=== PATIENT | female | born 1945 | race Caucasian/White ===

== ENCOUNTER → 2018-06-04 15:11 | Outpatient (CLI) | payer MEDICARE, OTHER, SELFPAY | PROVIDERS: PCP Internal Medicine; Visit Provider Physician Assistant | DX: N30.90 Cystitis, unspecified without hematuria (principal) | CPT/HCPCS: 87077; 87086; 87186 ==

== ENCOUNTER → 2018-10-21 10:05 | Outpatient (CLI) | payer MEDICARE, OTHER, SELFPAY ==
[2018-10-21 10:42] LABS: Add Manual Diff / Slide Review NO; Basophils Absolute Auto 0 /uL (0-100); Basophils Percent Auto 0.7 % (0-2); Eosinophils Absolute Auto 100 /uL (0-450); Eosinophils Percent Auto 1.5 % (2-4); Hematocrit 41.4 % (36-46); Hemoglobin 14.1 g/dL (12.0-16.0); Lymphocytes Absolute Auto 1100 /uL (1100-4500); Lymphocytes Percent Auto 29.6 % (25-40); Mean Corpuscular HGB Conc 33.9 % (30-36); Mean Corpuscular Hemoglobin 33.9 PG (26-34); Monocytes Absolute Auto 600 /uL (0-900); Monocytes Percent Auto 15.5 % (3-14); Neutrophils Absolute Auto 1900 /uL (1500-7000); Neutrophils Percent Auto 52.7 % (50-75); Platelet Count 238 X10^3/uL (150-400); Red Blood Cell Count 4.14 X10^6/uL (4.0-5.2); Red Cell Distribution Width 11.6 % (11.6-14.8); White Blood Cell Count 3.6 X10^3/uL (4.5-11.0)
[2018-10-21 10:58] LABS: Alanine Aminotransferase 30 IU/L (9-52); Albumin 4.7 g/dL (3.5-5.0); Albumin Globulin Ratio 1.6 (1.0-2.8); Alkaline Phosphatase 62 U/L (38-126); Aspartate Aminotransferase 35 IU/L (14-36); BUN Creatinine Ratio 38.8 (6-22); Bilirubin Total 0.7 mg/dL (0.2-1.3); Blood Urea Nitrogen 31 mg/dL (7-17); Calcium 9.6 mg/dL (8.4-10.2); Carbon Dioxide 29 mmol/L (22-32); Chloride 101 mmol/L (98-107); Cholesterol 230 mg/dL (140-199); Estimated Glomerular Filt Rate > 60.0 mL/min (>60); Glucose 104 mg/dL (80-110); HDL Cholesterol 74 mg/dL (40-60); HEMOLYSIS < 15 (0-50); LDL Cholesterol Calculated 137 mg/dL (<100); Potassium 4.9 mmol/L (3.4-5.1); Sodium 139 mmol/L (137-145); Total Protein 7.7 g/dL (6.3-8.2); Triglycerides 93 mg/dL (35-150)
[2018-10-21 11:28] LABS: Thyroid Stimulating Hormone 2.85 uIU/mL (0.47-4.68)
== END ==
PROVIDERS: PCP Internal Medicine; Visit Provider Internal Medicine Cardiovascular Disease
DX: I10 Essential (primary) hypertension (principal); E78.5 Hyperlipidemia, unspecified
CPT/HCPCS: 36415; 80053; 80061; 83735; 84443; 85025

== ENCOUNTER → 2019-01-10 19:49 | Outpatient (CLI) | payer MEDICARE, OTHER, SELFPAY | PROVIDERS: PCP Internal Medicine; Visit Provider Physician Assistant | DX: N30.01 Acute cystitis with hematuria (principal) | CPT/HCPCS: 87086 ==

== ENCOUNTER → 2019-03-06 10:30 | Outpatient (CLI) | payer MEDICARE, OTHER, SELFPAY ==
[2019-03-06 11:13] LABS: Add Manual Diff / Slide Review NO; Basophils Absolute Auto 0 /uL (0-100); Basophils Percent Auto 0.7 % (0-2); Eosinophils Absolute Auto 0 /uL (0-450); Eosinophils Percent Auto 0.8 % (2-4); Hematocrit 38.9 % (36-46); Hemoglobin 13.4 g/dL (12.0-16.0); Lymphocytes Absolute Auto 1100 /uL (1100-4500); Lymphocytes Percent Auto 29.9 % (25-40); Mean Corpuscular HGB Conc 34.4 % (30-36); Mean Corpuscular Hemoglobin 33.7 PG (26-34); Mean Corpuscular Volume 97.8 fL (80-100); Monocytes Absolute Auto 500 /uL (0-900); Monocytes Percent Auto 13.8 % (3-14); Neutrophils Absolute Auto 2000 /uL (1500-7000); Neutrophils Percent Auto 54.8 % (50-75); Platelet Count 224 X10^3/uL (150-400); Red Blood Cell Count 3.98 X10^6/uL (4.0-5.2); Red Cell Distribution Width 11.8 % (11.6-14.8); White Blood Cell Count 3.7 X10^3/uL (4.5-11.0)
[2019-03-06 12:08] LABS: Alanine Aminotransferase 35 IU/L (9-52); Albumin 4.3 g/dL (3.5-5.0); Albumin Globulin Ratio 1.6 (1.0-2.8); Alkaline Phosphatase 68 U/L (38-126); Aspartate Aminotransferase 37 IU/L (14-36); Bilirubin Total 0.9 mg/dL (0.2-1.3); Blood Urea Nitrogen 21 mg/dL (7-17); Calcium 9.4 mg/dL (8.4-10.2); Carbon Dioxide 27 mmol/L (22-32); Chloride 102 mmol/L (98-107); Cholesterol 159 mg/dL (140-199); Estimated Glomerular Filt Rate > 60.0 mL/min (>60); Globulin 2.7 g/dL (1.7-4.1); Glucose 95 mg/dL (80-110); HDL Cholesterol 82 mg/dL (40-60); HEMOLYSIS 18 (0-50); LDL Cholesterol Calculated 58 mg/dL (<100); Potassium 4.2 mmol/L (3.4-5.1); Sodium 139 mmol/L (137-145); Triglycerides 97 mg/dL (35-150)
== END ==
PROVIDERS: PCP Internal Medicine; Visit Provider Internal Medicine
DX: E78.5 Hyperlipidemia, unspecified (principal)
CPT/HCPCS: 36415; 80053; 80061; 85025

== ENCOUNTER → 2019-03-30 14:57 | Outpatient (CLI) | payer MEDICARE, OTHER, SELFPAY ==
--- NOTE | 2019-03-30 15:02 | DI.RAD.S_ITS ---
PROCEDURE: XR LUMBAR SPINE MIN 4V INDICATIONS: Status post lumbar fusion with axial low back pain TECHNIQUE: 4 views of the lumbar spine were acquired. COMPARISON: [facility], CT, CT ABDOMEN PELVIS WITH CONTRAST, 01/10/2018, 14:17. FINDINGS: Bones: 5 nonrib-bearing vertebrae are present. There is normal bony alignment maintained by L2-L4 transverse pedicle screws and vertical fixation rods with what appears to be interbody disc prosthesis material from L2-3 through L 3-4. No vertebral body compression fractures. No suspicious bony lesions. Soft tissues: Overlying bowel gas pattern is normal. No suspicious soft tissue calcifications. Oblique images: No pars defects. IMPRESSION: No trauma foun, no subluxation present. Stable appearance of the alignment along the lumbosacral spine after fusion as discussed above. No evidence of device loosening or disruption is found. Dictated by: Eusebio Snider M.D. on 03/30/2019 at 16:07 Approved by: Eusebio Snider M.D. on 03/30/2019 at 16:09
--- NOTE | 2019-03-30 15:02 | DI.CT.S_ITS ---
PROCEDURE: CT LUMBAR SPINE WO CON INDICATIONS: Axial low back pain status post L2-4 fusion TECHNIQUE: Noncontrast 3 mm thick sections acquired from the T12 level to the sacrum. Sagittal and coronal reformats were constructed. For radiation dose reduction, the following was used: automated exposure control. COMPARISON: [facility], CT, L-SPINE WITHOUT CONTRAST, 11/10/2016, 10:53. FINDINGS: Image quality: Excellent. Bones: Postsurgical changes compatible with left L2-L3 partial facetectomy and L3 laminectomy are stable compared to prior examination. Postsurgical changes compatible with L2-L4 posterior and interbody fusion are stable compared to the prior exam. Orthopedic hardware remains intact. No lucency is identified at the bone hardware interface. There is normal bony alignment. No acute vertebral body compression fractures. No suspicious lytic or blastic bony lesions. No pars defects. T12-L1: Disc height is normal. No central stenosis. No neural foraminal narrowing. No neural impingement. L1-L2: Loss of disc height. Moderate, diffuse disc bulge. Mild bilateral facet hypertrophy. Mild ligamentum flavum hypertrophy. Mild to moderate narrowing of the central canal. Mild left neural foraminal narrowing. No definite neural impingement. L2-L3: Status post fusion. No central stenosis. Mild left neural foraminal narrowing. No definite neural impingement. L3-L4: Status post fusion. No central stenosis. No neural foraminal narrowing. No definite neural impingement. L4-L5: Loss of disc height. Vacuum disc phenomenon. Mild diffuse disc bulge. Moderate facet and moderate ligamentum flavum hypertrophy. Moderate to severe narrowing of the central canal with possible compression of the nerve roots of cauda equina. Moderate right and mild left neural foraminal narrowing. L5-S1: Disc height is normal. Mild, diffuse disc bulge. Moderate bilateral facet hypertrophy. No central stenosis. Mild right neural foraminal narrowing. No neural impingement. 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 Soft tissues: No retroperitoneal masses or hematomas. Visualized aorta is normal in caliber. IMPRESSION: 1. Stable postsurgical changes. 2. Moderate to severe L4-L5 central canal stenosis. Mild to moderate L1-L2 central canal narrowing. 3. Moderate right and mild left L4-L5 neural foraminal narrowing. Mild left L1-L2 and L2-L3 neural foraminal narrowing. Mild right L5-S1 neural foraminal narrowing. 4. Possible mild compression of the nerve root of cauda equina at level of the L4-L5 disc secondary to central canal stenosis. Dictated by: Marycarmen Quinonez MD, PhD on 03/30/2019 at 17:08 Approved by: Marycarmen Quinonez MD, PhD on 03/30/2019 at 17:17
== END ==
PROVIDERS: PCP Internal Medicine; Visit Provider Physical Medicine & Rehabilitation
DX: M54.5 Low back pain (principal); M48.061 Spinal stenosis, lumbar region without neurogenic claudication; M48.07 Spinal stenosis, lumbosacral region; M47.27 Other spondylosis with radiculopathy, lumbosacral region; Z98.1 Arthrodesis status
CPT/HCPCS: 72110; 72131

== ENCOUNTER → 2019-05-09 14:34 | Outpatient (CLI) | payer MEDICARE, OTHER, SELFPAY ==
[2019-05-09 15:01] LABS: BUN Creatinine Ratio 31.1 (6-22); Blood Urea Nitrogen 28 mg/dL (7-17); Estimated Glomerular Filt Rate > 60.0 mL/min (>60)
== END ==
PROVIDERS: PCP Internal Medicine; Visit Provider Physical Medicine & Rehabilitation
DX: M47.27 Other spondylosis with radiculopathy, lumbosacral region (principal); Z01.812 Encounter for preprocedural laboratory examination
CPT/HCPCS: 36415; 82565; 84520

== ENCOUNTER → 2019-06-14 16:56 | Outpatient (CLI) | payer MEDICARE, OTHER, SELFPAY ==
--- NOTE | 2019-06-14 16:58 | DI.RAD.S_ITS ---
PROCEDURE: XR CHEST 2V INDICATIONS: SOB, productive cough, r/o pneumonia TECHNIQUE: 2 views of the chest were acquired. COMPARISON: None. FINDINGS: Surgical changes and devices: Lumbar spine fixation hardware. Lungs and pleura: Lungs are clear. No pleural effusions or pneumothorax. Mediastinum: Mediastinal contours are normal. Heart size is normal. Bones and chest wall: No suspicious bony abnormalities. Soft tissues appear unremarkable. IMPRESSION: No acute cardiopulmonary disease process. Dictated by: Marycarmen Quinonez MD, PhD on 06/14/2019 at 17:43 Approved by: Marycarmen Quinonez MD, PhD on 06/14/2019 at 17:45
== END ==
PROVIDERS: PCP Internal Medicine; Visit Provider Nurse Practitioner
DX: R05 Cough (principal); R06.02 Shortness of breath
CPT/HCPCS: 71046

== ENCOUNTER 2019-07-16 09:45 | Outpatient (RCR) | payer MEDICARE, OTHER, SELFPAY ==
--- NOTE | 2019-05-15 15:00 | PT.OPPOC ---
Current Diagnoses Scoliosis, unspecified (05/15/19) Other spondylosis with radiculopathy, lumbosacral region (05/15/19) Spondylosis without myelopathy or radiculopathy, lumbosacral region (05/15/19) Arthrodesis status (05/15/19) Visit Care Team Role Provider Type Yinka Ardon MD Primary Care Provider Non-Staff Specialty: Medical Address: [address] [place] [address], [id number] Email: YUE Kelley Attending Provider Advanced Refractory Specialist Specialty: Pain Management Address: [address] [place] [address], [id number] Email: [email or web address] Plan Of Care PT-OP-T Assessment and Plan Start: 05/15/19 09:07 Freq: Status: Active Protocol: Document 05/15/19 14:33 MB (Rec: 05/15/19 15:07 MB [id number]) Physical Therapy Assessment Rehab Potential Rehabilitation Potential Good Evaluation Complexity Number of Personal Factors/Comorbidities 1-2 Number of Body Systems Impaired 1-2 Clinical Presentation at Evaluation Stable Impairments Impairments Balance,Functional Activities, Functional Mobility,Gait,Pain, Posture,ROM,Sensation,Soft Tissue Mobility,Strength Goals Six Retirement Goal (LTG) Pt will perform B Tandem to 30 sec to reflect improved balance by 07/15/19. Five Ophthalmology Surgical Technician Goal (LTG) Pt will perform progressive HEP with I including pelvic realignment, flexibility, core and LE strengthening and balance exercises by 07/15/19. Four Impairment Weakness Retirement Goal (LTG) Pt will present with improved B great toe extension strength to 4/5 by 07/15/19. Three Impairment Weakness Ophthalmology Surgical Technician Goal (LTG) Pt will present with B hip flexion, abduction, knee flexion and extension strength to 5/5 by 07/15/19. Two Impairment Decreased Flexibility Ophthalmology Surgical Technician Goal (LTG) Pt will present with B passive straight leg raise to 85 deg to improve functional flexibility by 07/15/19. One Impairment Pain Retirement Goal (LTG) Pain will report a 65% improvement in back and LLE pain by 07/15/19. Assessment Summary Assessment Pt is a 73 y/o female presenting with chronic back and LLE pain in setting of spinal changes including scoliosis and fusions. She presents with pelvic obliquities and functional leg length changes. She feels that her right LE is shorter than the left and wears a lift in her right shoe. Pt presents with decreased LE flexibility to passive testing , decreased B LE strength and poor balance. She presents with myofascial changes as well. She will benefit from PT for pelvic realignment, manual therapy, progressive flexibility and balance exercises. Physical Therapy Plan Frequency and Duration Frequency of Treatment 2x/Week Duration of Treatment 8 weeks Plan of Care Start Date 05/15/19 Plan of Care End Date 07/16/19 Therapeutic Interventions Therapeutic Interventions Aquatic Therapy,Balance Training,Coordination Training ,Home Exercise Program,Manual Therapy,Neuromuscular Re- education,Patient/Caregiver Education,Self-Care/Home Management,Sensory Integration ,Soft Tissue Mobilization, Taping,Therapeutic Activities, Therapeutic Exercises Modalities Cold Pack/Ice Massage Next Visit Focus/Plan Next Note Type Treatment Note Plan of Care Dates Plan of Care Start Date 05/15/19 Plan of Care End Date 07/16/19
--- NOTE | 2019-05-15 15:08 | PT.OIE ---
Current Diagnoses Scoliosis, unspecified (05/15/19) Other spondylosis with radiculopathy, lumbosacral region (05/15/19) Spondylosis without myelopathy or radiculopathy, lumbosacral region (05/15/19) Arthrodesis status (05/15/19) Visit Care Team Role Provider Type Yinka Ardon MD Primary Care Provider Non-Staff Specialty: Medical Address: [address] [place] [address], [id number] Email: YUE Kelley Attending Provider Advanced Work Measurement Engineer Specialty: Pain Management Address: [address] [place] [address], [id number] Email: [email or web address] Physical Therapy Initial Evaluation PT-OP-A Visit Information Start: 05/15/19 09:07 Freq: Status: Active Protocol: Document 05/15/19 14:33 MB (Rec: 05/15/19 15:07 MB [id number]) Out-Patient Physical Therapy Visit Information Visit Information Visit Type Initial Evaluation Visit Start Time 13:45 Visit Stop Time 14:25 Total Visit Minutes 40 Visit Number / Number of NAVAL ENGINEER Visits 0 Evaluation Information Evaluation Date 05/15/19 Precautions Precautions Hx cervical and lumbar fusions , so recommend avoid twisting, extreme extension and flexion PT-OP-B Current Condition Start: 05/15/19 09:07 Freq: Status: Active Protocol: Document 05/15/19 14:33 MB (Rec: 05/15/19 15:07 MB [id number]) Current Condition History of Current Condition Onset Date Gradual Current Complaints Chronic LB pain and L lateral tingling and pain, B LE/foot neuropathy History of Current Condition Hx scoliosis, cervical fusion and L2-4 fusion. Ongoing spinal changes with curvature, severe pelvic obliquities with left iliac crest 3/4-1 inch higher than the right, anterior rotation of the left pelvis. Pt reports long history of peripheral neuropathy. 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 Prior Treatments and Tests Sx PT in the past that she did not care for in that she was given a lot of exercises and they might have exacerbated pain, PT focused on her going through her exercises during tx Future Testing and Treatments Planned Follow-up with neurologist Developmental History Developmental History See above. Hx of scoliotic changes since childhood Treatment Goals Patient/Caregiver Goals To decrease pain Prior Functional Status Baseline Function- ADL's Independent Baseline Function- Mobility Independent PT-OP-C Subjective Start: 05/15/19 09:07 Freq: Status: Active Protocol: Document 05/15/19 14:33 MB (Rec: 05/15/19 15:07 MB [id number]) OP-PT Subjective Patient Comments Patient Comments Pt reports increased back pain that moves from side to side and across her whole low back that is worse with sitting greater than 1/2 hour. When asked particular questions, she has trouble answering some such as rating pain. She reports left LE tingling and paresthesias down the lateral leg and B peripheral neuropathy. She has some bladder emptying problems, sleeps on her right side d/t left lateral leg pain with left side lying. She has trouble with balance. She feels like her left leg is longer and wheres a lift in her right shoe. Patient Reported Progress Same Patient Questionnaires Oswestry Low Back Index Oswestry Score 16/50 Oswestry Impairment 20 to 39% Impaired (Score 20- 39) OP-PT Pain Assessment Location Back Pain Location Details Pt reports whole back pain that occ changes sides. She points to LB Frequency Constant Pain Aggravating Factors Sitting Patient Stated Pain Goal Pt does not set goal. Pt reports tingling and pain left lateral leg, B feet PT-OP-D Balance Start: 05/15/19 09:07 Freq: Status: Active Protocol: Document 05/15/19 14:33 MB (Rec: 05/15/19 15:07 MB [id number]) OP-PT Balance Assessment Standing Balance Static Standing Balance Ability Good Standing Balance Comments Romberg with eyes opened and closed 30 sec. SLS right 7 sec and then LOB; SLS left 7 sec and then LOB Downing Fall Scale Copyright Permission PT-OP-G Mobility & Gait Start: 05/15/19 09:07 Freq: Status: Active Protocol: Document 05/15/19 14:33 MB (Rec: 05/15/19 15:07 MB [id number]) OP Gait Assessment Gait Gait Assistance Required: Independent Gait Deviations General Gait Pattern Within Normal Limits Comments Gait Comments Functionally, pt does appear to have functional leg length difference related to pelvic changes--elevated left iliac crest and anteriorly rotated left pelvis. PT-OP-K Range of Motion Start: 05/15/19 09:07 Freq: Status: Active Protocol: Document 05/15/19 14:33 MB (Rec: 05/15/19 15:07 MB [id number]) Lumbar Spine Range of Motion Lumbar Spine Active Comments Given fusions and scoliotic changes with right thoracic convexity and left lumbar convexity (that appears to be functionally corrected for straightened spine but left pelvis is affected, elevated and rotated), repeated flexion and extension and SB in standing deferred. Hip Goniometric Range of Motion Hip ROM Limitations Comments SLS right 80 deg; left 70 deg PT-OP-L Special Tests Start: 05/15/19 09:07 Freq: Status: Active Protocol: Document 05/15/19 14:33 MB (Rec: 05/15/19 15:07 MB [id number]) Special Tests Lumbar Spine Special Tests Slump Test Results Negative for tingling and pt reports B increased stretch posterior legs >L PT-OP-M Strength Start: 05/15/19 09:07 Freq: Status: Active Protocol: Document 05/15/19 14:33 MB (Rec: 05/15/19 15:07 MB [id number]) Hip Strength Hip Manual Muscle Testing Left Flexion (L2) 4 Good Abduction 3+ Fair+ Comments Supine Right Flexion (L2) 4 Good Abduction 3+ Fair+ Comments Supine Knee Strength Knee Manual Muscle Testing Left Flexion (S2) 4 Good Extension (L3) 5 Normal Comments Supine Right Flexion (S2) 4 Good Extension (L3) 5 Normal Comments Supine Ankle/Foot Strength Ankle and Foot Manual Muscle Testing Left Dorsiflexion (L4) 5 Normal Plantarflexion (S1) 4 Good Right Dorsiflexion (L4) 5 Normal Plantarflexion (S1) 4 Good Toe Strength Toe Manual Muscle Testing Great Toe Comments B great toe extension 3+/5 PT-OP-T Assessment and Plan Start: 05/15/19 09:07 Freq: Status: Active Protocol: Document 05/15/19 14:33 MB (Rec: 05/15/19 15:07 MB [id number]) Physical Therapy Assessment Rehab Potential Rehabilitation Potential Good Evaluation Complexity Number of Personal Factors/Comorbidities 1-2 Number of Body Systems Impaired 1-2 Clinical Presentation at Evaluation Stable Impairments Impairments Balance,Functional Activities, Functional Mobility,Gait,Pain, Posture,ROM,Sensation,Soft Tissue Mobility,Strength Goals Six Penitentiary Goal (LTG) Pt will perform B Tandem to 30 sec to reflect improved balance by 07/15/19. Five Director Of Psychiatry Goal (LTG) Pt will perform progressive HEP with I including pelvic realignment, flexibility, core and LE strengthening and balance exercises by 07/15/19. Four Impairment Weakness Director Of Psychiatry Goal (LTG) Pt will present with improved B great toe extension strength to 4/5 by 07/15/19. Three Impairment Weakness Penitentiary Goal (LTG) Pt will present with B hip flexion, abduction, knee flexion and extension strength to 5/5 by 07/15/19. Two Impairment Decreased Flexibility Director Of Psychiatry Goal (LTG) Pt will present with B passive straight leg raise to 85 deg to improve functional flexibility by 07/15/19. One Impairment Pain Director Of Psychiatry Goal (LTG) Pain will report a 65% improvement in back and LLE pain by 07/15/19. Assessment Summary Assessment Pt is a 73 y/o female presenting with chronic back and LLE pain in setting of spinal changes including scoliosis and fusions. She presents with pelvic obliquities and functional leg length changes. She feels that her right LE is shorter than the left and wears a lift in her right shoe. Pt presents with decreased LE flexibility to passive testing , decreased B LE strength and poor balance. She presents with myofascial changes as well. She will benefit from PT for pelvic realignment, manual therapy, progressive flexibility and balance exercises. Physical Therapy Plan Frequency and Duration Frequency of Treatment 2x/Week Duration of Treatment 8 weeks Plan of Care Start Date 05/15/19 Plan of Care End Date 07/16/19 Therapeutic Interventions Therapeutic Interventions Aquatic Therapy,Balance Training,Coordination Training ,Home Exercise Program,Manual Therapy,Neuromuscular Re- education,Patient/Caregiver Education,Self-Care/Home Management,Sensory Integration ,Soft Tissue Mobilization, Taping,Therapeutic Activities, Therapeutic Exercises Modalities Cold Pack/Ice Massage Next Visit Focus/Plan Next Note Type Treatment Note
--- NOTE | 2019-05-28 10:35 | PT.OTN ---
Current Diagnoses Scoliosis, unspecified (05/28/19) Other spondylosis with radiculopathy, lumbosacral region (05/28/19) Spondylosis without myelopathy or radiculopathy, lumbosacral region (05/28/19) Arthrodesis status (05/28/19) Physical Therapy Treatment Note PT-OP-A Visit Information Start: 05/15/19 09:07 Freq: Status: Active Protocol: Document 05/28/19 09:45 MB (Rec: 05/28/19 10:30 MB [id number]) Out-Patient Physical Therapy Visit Information Visit Information Visit Type Treatment Note Visit Note Initiated pelvic realignment exercises, hamstring, calf and AP stretch, Jaden stretch Visit Start Time 09:45 Visit Stop Time 10:30 Total Visit Minutes 45 Visit Number 2/ Number of SAFETY RISK LEAD Visits 0 PT-OP-B Current Condition Start: 05/15/19 09:07 Freq: Status: Active Protocol: Document 05/15/19 14:33 MB (Rec: 05/15/19 15:07 MB [id number]) Current Condition History of Current Condition Onset Date Gradual Current Complaints Chronic LB pain and L lateral tingling and pain, B LE/foot neuropathy History of Current Condition Hx scoliosis, cervical fusion and L2-4 fusion. Ongoing spinal changes with curvature, severe pelvic obliquities with left iliac crest 3/4-1 inch higher than the right, anterior rotation of the left pelvis. Pt reports long history of peripheral neuropathy. 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 Prior Treatments and Tests Sx PT in the past that she did not care for in that she was given a lot of exercises and they might have exacerbated pain, PT focused on her going through her exercises during tx Future Testing and Treatments Planned Follow-up with neurologist Developmental History Developmental History See above. Hx of scoliotic changes since childhood Treatment Goals Patient/Caregiver Goals To decrease pain Prior Functional Status Baseline Function- ADL's Independent Baseline Function- Mobility Independent PT-OP-C Subjective Start: 05/15/19 09:07 Freq: Status: Active Protocol: Document 05/28/19 09:45 MB (Rec: 05/28/19 10:30 MB [id number]) OP-PT Subjective Patient Comments Patient Comments Pt reports that she thinks she tweeked her neck. She is done RVing for the season. PT-OP-D Balance Start: 05/15/19 09:07 Freq: Status: Active Protocol: Document 05/15/19 14:33 MB (Rec: 05/15/19 15:07 MB [id number]) OP-PT Balance Assessment Standing Balance Static Standing Balance Ability Good Standing Balance Comments Romberg with eyes opened and closed 30 sec. SLS right 7 sec and then LOB; SLS left 7 sec and then LOB Downing Fall Scale Copyright Permission PT-OP-G Mobility & Gait Start: 05/15/19 09:07 Freq: Status: Active Protocol: Document 05/15/19 14:33 MB (Rec: 05/15/19 15:07 MB [id number]) OP Gait Assessment Gait Gait Assistance Required: Independent Gait Deviations General Gait Pattern Within Normal Limits Comments Gait Comments Functionally, pt does appear to have functional leg length difference related to pelvic changes--elevated left iliac crest and anteriorly rotated left pelvis. PT-OP-K Range of Motion Start: 05/15/19 09:07 Freq: Status: Active Protocol: Document 05/15/19 14:33 MB (Rec: 05/15/19 15:07 MB [id number]) Lumbar Spine Range of Motion Lumbar Spine Active Comments Given fusions and scoliotic changes with right thoracic convexity and left lumbar convexity (that appears to be functionally corrected for straightened spine but left pelvis is affected, elevated and rotated), repeated flexion and extension and SB in standing deferred. Hip Goniometric Range of Motion Hip ROM Limitations Comments SLS right 80 deg; left 70 deg PT-OP-L Special Tests Start: 05/15/19 09:07 Freq: Status: Active Protocol: Document 05/15/19 14:33 MB (Rec: 05/15/19 15:07 MB [id number]) Special Tests Lumbar Spine Special Tests Slump Test Results Negative for tingling and pt reports B increased stretch posterior legs >L PT-OP-M Strength Start: 05/15/19 09:07 Freq: Status: Active Protocol: Document 05/15/19 14:33 MB (Rec: 05/15/19 15:07 MB [id number]) Hip Strength Hip Manual Muscle Testing Left Flexion (L2) 4 Good Abduction 3+ Fair+ Comments Supine Right Flexion (L2) 4 Good Abduction 3+ Fair+ Comments Supine Knee Strength Knee Manual Muscle Testing Left Flexion (S2) 4 Good Extension (L3) 5 Normal Comments Supine Right Flexion (S2) 4 Good Extension (L3) 5 Normal Comments Supine Ankle/Foot Strength Ankle and Foot Manual Muscle Testing Left Dorsiflexion (L4) 5 Normal Plantarflexion (S1) 4 Good Right Dorsiflexion (L4) 5 Normal Plantarflexion (S1) 4 Good Toe Strength Toe Manual Muscle Testing Great Toe Comments B great toe extension 3+/5 PT-OP-Q Treatments Start: 05/15/19 09:07 Freq: Status: Active Protocol: Document 05/28/19 09:45 MB (Rec: 05/28/19 10:30 MB [id number]) Therapeutic Exercises Supine Exercises Pelvic realignment exercises Comments Pelvic realignment exercises Hamstring, calf and AP stretch Comments Hamstring, calf and AP stretch , add/abd Jaden stretch Comments Jaden stretch PT-OP-T Assessment and Plan Start: 05/15/19 09:07 Freq: Status: Active Protocol: Document 05/28/19 09:45 MB (Rec: 05/28/19 10:30 MB [id number]) Physical Therapy Assessment Goals Six Longterm Goal (LTG) Pt will perform B Tandem to 30 sec to reflect improved balance by 07/15/19. Five Longterm Goal (LTG) Pt will perform progressive HEP with I including pelvic realignment, flexibility, core and LE strengthening and balance exercises by 07/15/19. Four Impairment Weakness Ship Engineer Goal (LTG) Pt will present with improved B great toe extension strength to 4/5 by 07/15/19. Three Impairment Weakness Longterm Goal (LTG) Pt will present with B hip flexion, abduction, knee flexion and extension strength to 5/5 by 07/15/19. Two Impairment Decreased Flexibility Ship Engineer Goal (LTG) Pt will present with B passive straight leg raise to 85 deg to improve functional flexibility by 07/15/19. One Impairment Pain Ship Engineer Goal (LTG) Pain will report a 65% improvement in back and LLE pain by 07/15/19. Physical Therapy Plan Frequency and Duration Frequency of Treatment 2x/Week Duration of Treatment 8 weeks Plan of Care Start Date 05/15/19 Plan of Care End Date 07/16/19 Next Visit Focus/Plan Next Note Type Treatment Note Next Visit Plan Review pelvic realignement exercises, consider hip flexor work, QL. Consider pelvic pain exercises.
--- NOTE | 2019-05-30 10:32 | PT.OTN ---
Current Diagnoses Scoliosis, unspecified (05/30/19) Other spondylosis with radiculopathy, lumbosacral region (05/30/19) Spondylosis without myelopathy or radiculopathy, lumbosacral region (05/30/19) Arthrodesis status (05/30/19) Physical Therapy Treatment Note PT-OP-A Visit Information Start: 05/15/19 09:07 Freq: Status: Active Protocol: Document 05/30/19 09:48 MB (Rec: 05/30/19 10:32 MB [id number]) Out-Patient Physical Therapy Visit Information Visit Information Visit Type Treatment Note Visit Start Time 09:48 Visit Stop Time 10:30 Total Visit Minutes 43 Visit Number 3/ Number of V BELT COVERER Visits 0 PT-OP-B Current Condition Start: 05/15/19 09:07 Freq: Status: Active Protocol: Document 05/15/19 14:33 MB (Rec: 05/15/19 15:07 MB [id number]) Current Condition History of Current Condition Onset Date Gradual Current Complaints Chronic LB pain and L lateral tingling and pain, B LE/foot neuropathy History of Current Condition Hx scoliosis, cervical fusion and L2-4 fusion. Ongoing spinal changes with curvature, severe pelvic obliquities with left iliac crest 3/4-1 inch higher than the right, anterior rotation of the left pelvis. Pt reports long history of peripheral neuropathy. 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 Prior Treatments and Tests Sx PT in the past that she did not care for in that she was given a lot of exercises and they might have exacerbated pain, PT focused on her going through her exercises during tx Future Testing and Treatments Planned Follow-up with neurologist Developmental History Developmental History See above. Hx of scoliotic changes since childhood Treatment Goals Patient/Caregiver Goals To decrease pain Prior Functional Status Baseline Function- ADL's Independent Baseline Function- Mobility Independent PT-OP-C Subjective Start: 05/15/19 09:07 Freq: Status: Active Protocol: Document 05/30/19 09:48 MB (Rec: 05/30/19 10:32 MB [id number]) OP-PT Subjective Patient Comments Patient Comments Pt has been doing stretches and made her own stretching belt. She has right upper traps tension. PT-OP-D Balance Start: 05/15/19 09:07 Freq: Status: Active Protocol: Document 05/15/19 14:33 MB (Rec: 05/15/19 15:07 MB [id number]) OP-PT Balance Assessment Standing Balance Static Standing Balance Ability Good Standing Balance Comments Romberg with eyes opened and closed 30 sec. SLS right 7 sec and then LOB; SLS left 7 sec and then LOB Downing Fall Scale Copyright Permission PT-OP-G Mobility & Gait Start: 05/15/19 09:07 Freq: Status: Active Protocol: Document 05/15/19 14:33 MB (Rec: 05/15/19 15:07 MB [id number]) OP Gait Assessment Gait Gait Assistance Required: Independent Gait Deviations General Gait Pattern Within Normal Limits Comments Gait Comments Functionally, pt does appear to have functional leg length difference related to pelvic changes--elevated left iliac crest and anteriorly rotated left pelvis. PT-OP-K Range of Motion Start: 05/15/19 09:07 Freq: Status: Active Protocol: Document 05/15/19 14:33 MB (Rec: 05/15/19 15:07 MB [id number]) Lumbar Spine Range of Motion Lumbar Spine Active Comments Given fusions and scoliotic changes with right thoracic convexity and left lumbar convexity (that appears to be functionally corrected for straightened spine but left pelvis is affected, elevated and rotated), repeated flexion and extension and SB in standing deferred. Hip Goniometric Range of Motion Hip ROM Limitations Comments SLS right 80 deg; left 70 deg PT-OP-L Special Tests Start: 05/15/19 09:07 Freq: Status: Active Protocol: Document 05/15/19 14:33 MB (Rec: 05/15/19 15:07 MB [id number]) Special Tests Lumbar Spine Special Tests Slump Test Results Negative for tingling and pt reports B increased stretch posterior legs >L PT-OP-M Strength Start: 05/15/19 09:07 Freq: Status: Active Protocol: Document 05/15/19 14:33 MB (Rec: 05/15/19 15:07 MB [id number]) Hip Strength Hip Manual Muscle Testing Left Flexion (L2) 4 Good Abduction 3+ Fair+ Comments Supine Right Flexion (L2) 4 Good Abduction 3+ Fair+ Comments Supine Knee Strength Knee Manual Muscle Testing Left Flexion (S2) 4 Good Extension (L3) 5 Normal Comments Supine Right Flexion (S2) 4 Good Extension (L3) 5 Normal Comments Supine Ankle/Foot Strength Ankle and Foot Manual Muscle Testing Left Dorsiflexion (L4) 5 Normal Plantarflexion (S1) 4 Good Right Dorsiflexion (L4) 5 Normal Plantarflexion (S1) 4 Good Toe Strength Toe Manual Muscle Testing Great Toe Comments B great toe extension 3+/5 PT-OP-Q Treatments Start: 05/15/19 09:07 Freq: Status: Active Protocol: Document 05/30/19 09:48 MB (Rec: 05/30/19 10:32 MB [id number]) Therapeutic Exercises Supine Exercises Pelvic and back pain sequence Supine Exercise Name Abdominal drawing in, drop, thigh press, bug pressing inside thighs Comments Hip rotator stretch, buttocks stretch, adductor, standing hip flexor, QL PT-OP-T Assessment and Plan Start: 05/15/19 09:07 Freq: Status: Active Protocol: Document 05/30/19 09:48 MB (Rec: 05/30/19 10:32 MB [id number]) Physical Therapy Assessment Goals Six Balancing Machine Operator Goal (LTG) Pt will perform B Tandem to 30 sec to reflect improved balance by 07/15/19. Five Balancing Machine Operator Goal (LTG) Pt will perform progressive HEP with I including pelvic realignment, flexibility, core and LE strengthening and balance exercises by 07/15/19. Four Impairment Weakness Snf Goal (LTG) Pt will present with improved B great toe extension strength to 4/5 by 07/15/19. Three Impairment Weakness Snf Goal (LTG) Pt will present with B hip flexion, abduction, knee flexion and extension strength to 5/5 by 07/15/19. Two Impairment Decreased Flexibility Balancing Machine Operator Goal (LTG) Pt will present with B passive straight leg raise to 85 deg to improve functional flexibility by 07/15/19. One Impairment Pain Balancing Machine Operator Goal (LTG) Pain will report a 65% improvement in back and LLE pain by 07/15/19. Assessment Summary Assessment Initiated pelvic and lumbar pain program this date and pt responds well. Consider teaching use of racquet ball for massage. Physical Therapy Plan Frequency and Duration Frequency of Treatment 2x/Week Duration of Treatment 8 weeks Plan of Care Start Date 05/15/19 Plan of Care End Date 07/16/19 Therapeutic Interventions Therapeutic Interventions Aquatic Therapy,Balance Training,Coordination Training ,Home Exercise Program,Manual Therapy,Neuromuscular Re- education,Patient/Caregiver Education,Self-Care/Home Management,Sensory Integration ,Soft Tissue Mobilization, Taping,Therapeutic Activities, Therapeutic Exercises Modalities Cold Pack/Ice Massage Next Visit Focus/Plan Next Note Type Treatment Note Next Visit Plan Consider consider hip flexor work, QL. Progress hip abductior and extensor strengthening, abdominal drawing in progression.
--- NOTE | 2019-06-04 11:18 | PT.OTN ---
Current Diagnoses Scoliosis, unspecified (06/04/19) Other spondylosis with radiculopathy, lumbosacral region (06/04/19) Spondylosis without myelopathy or radiculopathy, lumbosacral region (06/04/19) Arthrodesis status (06/04/19) Physical Therapy Treatment Note PT-OP-A Visit Information Start: 05/15/19 09:07 Freq: Status: Active Protocol: Document 06/04/19 09:47 MB (Rec: 06/04/19 10:27 MB [id number]) Out-Patient Physical Therapy Visit Information Visit Information Visit Type Treatment Note Visit Start Time 09:47 Visit Stop Time 10:30 Total Visit Minutes 43 Visit Number 11/22 Number of RELAY SHOP TESTER Visits 0 PT-OP-B Current Condition Start: 05/15/19 09:07 Freq: Status: Active Protocol: Document 05/15/19 14:33 MB (Rec: 05/15/19 15:07 MB [id number]) Current Condition History of Current Condition Onset Date Gradual Current Complaints Chronic LB pain and L lateral tingling and pain, B LE/foot neuropathy History of Current Condition Hx scoliosis, cervical fusion and L2-4 fusion. Ongoing spinal changes with curvature, severe pelvic obliquities with left iliac crest 3/4-1 inch higher than the right, anterior rotation of the left pelvis. Pt reports long history of peripheral neuropathy. 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 Prior Treatments and Tests Sx PT in the past that she did not care for in that she was given a lot of exercises and they might have exacerbated pain, PT focused on her going through her exercises during tx Future Testing and Treatments Planned Follow-up with neurologist Developmental History Developmental History See above. Hx of scoliotic changes since childhood Treatment Goals Patient/Caregiver Goals To decrease pain Prior Functional Status Baseline Function- ADL's Independent Baseline Function- Mobility Independent PT-OP-C Subjective Start: 05/15/19 09:07 Freq: Status: Active Protocol: Document 06/04/19 09:47 MB (Rec: 06/04/19 10:27 MB [id number]) OP-PT Subjective Patient Comments Patient Comments Pt states that her upper back pain is problematic. She feels it is spasming that goes all the way up to her neck. PT-OP-D Balance Start: 05/15/19 09:07 Freq: Status: Active Protocol: Document 05/15/19 14:33 MB (Rec: 05/15/19 15:07 MB [id number]) OP-PT Balance Assessment Standing Balance Static Standing Balance Ability Good Standing Balance Comments Romberg with eyes opened and closed 30 sec. SLS right 7 sec and then LOB; SLS left 7 sec and then LOB Downing Fall Scale Copyright Permission PT-OP-G Mobility & Gait Start: 05/15/19 09:07 Freq: Status: Active Protocol: Document 05/15/19 14:33 MB (Rec: 05/15/19 15:07 MB [id number]) OP Gait Assessment Gait Gait Assistance Required: Independent Gait Deviations General Gait Pattern Within Normal Limits Comments Gait Comments Functionally, pt does appear to have functional leg length difference related to pelvic changes--elevated left iliac crest and anteriorly rotated left pelvis. PT-OP-K Range of Motion Start: 05/15/19 09:07 Freq: Status: Active Protocol: Document 05/15/19 14:33 MB (Rec: 05/15/19 15:07 MB [id number]) Lumbar Spine Range of Motion Lumbar Spine Active Comments Given fusions and scoliotic changes with right thoracic convexity and left lumbar convexity (that appears to be functionally corrected for straightened spine but left pelvis is affected, elevated and rotated), repeated flexion and extension and SB in standing deferred. Hip Goniometric Range of Motion Hip ROM Limitations Comments SLS right 80 deg; left 70 deg PT-OP-L Special Tests Start: 05/15/19 09:07 Freq: Status: Active Protocol: Document 05/15/19 14:33 MB (Rec: 05/15/19 15:07 MB [id number]) Special Tests Lumbar Spine Special Tests Slump Test Results Negative for tingling and pt reports B increased stretch posterior legs >L PT-OP-M Strength Start: 05/15/19 09:07 Freq: Status: Active Protocol: Document 05/15/19 14:33 MB (Rec: 05/15/19 15:07 MB [id number]) Hip Strength Hip Manual Muscle Testing Left Flexion (L2) 4 Good Abduction 3+ Fair+ Comments Supine Right Flexion (L2) 4 Good Abduction 3+ Fair+ Comments Supine Knee Strength Knee Manual Muscle Testing Left Flexion (S2) 4 Good Extension (L3) 5 Normal Comments Supine Right Flexion (S2) 4 Good Extension (L3) 5 Normal Comments Supine Ankle/Foot Strength Ankle and Foot Manual Muscle Testing Left Dorsiflexion (L4) 5 Normal Plantarflexion (S1) 4 Good Right Dorsiflexion (L4) 5 Normal Plantarflexion (S1) 4 Good Toe Strength Toe Manual Muscle Testing Great Toe Comments B great toe extension 3+/5 PT-OP-Q Treatments Start: 05/15/19 09:07 Freq: Status: Active Protocol: Document 06/04/19 09:47 MB (Rec: 06/04/19 10:27 MB [id number]) Therapeutic Exercises Sidelying Exercises Sidelying QL stretch Comments Sidelying QL stretch Standing Exercises Racquet ball massage Comments Intrascapular, glute massage Manual Therapy Treatment Soft Tissue Mobilization QL side lying rib recoil Comments Side lying rib recoil for QL, STM as well, B PT-OP-T Assessment and Plan Start: 05/15/19 09:07 Freq: Status: Active Protocol: Document 06/04/19 09:47 MB (Rec: 06/04/19 10:27 MB [id number]) Physical Therapy Assessment Rehab Potential Rehabilitation Potential Good Evaluation Complexity Number of Personal Factors/Comorbidities 1-2 Number of Body Systems Impaired 1-2 Clinical Presentation at Evaluation Stable Impairments Impairments Balance,Functional Activities, Functional Mobility,Gait,Pain, Posture,ROM,Sensation,Soft Tissue Mobility,Strength Goals Six Prescriptionist Goal (LTG) Pt will perform B Tandem to 30 sec to reflect improved balance by 07/15/19. Five Prescriptionist Goal (LTG) Pt will perform progressive HEP with I including pelvic realignment, flexibility, core and LE strengthening and balance exercises by 07/15/19. Four Impairment Weakness Prescriptionist Goal (LTG) Pt will present with improved B great toe extension strength to 4/5 by 07/15/19. Three Impairment Weakness Detention Goal (LTG) Pt will present with B hip flexion, abduction, knee flexion and extension strength to 5/5 by 07/15/19. Two Impairment Decreased Flexibility Detention Goal (LTG) Pt will present with B passive straight leg raise to 85 deg to improve functional flexibility by 07/15/19. One Impairment Pain Detention Goal (LTG) Pain will report a 65% improvement in back and LLE pain by 07/15/19. Assessment Summary Assessment Pt con't to report upper back pain that is really bothering her. Lats and paraspinals improve with recoil this date. Physical Therapy Plan Frequency and Duration Frequency of Treatment 2x/Week Duration of Treatment 8 weeks Plan of Care Start Date 05/15/19 Plan of Care End Date 07/16/19 Therapeutic Interventions Therapeutic Interventions Aquatic Therapy,Balance Training,Coordination Training ,Home Exercise Program,Manual Therapy,Neuromuscular Re- education,Patient/Caregiver Education,Self-Care/Home Management,Sensory Integration ,Soft Tissue Mobilization, Taping,Therapeutic Activities, Therapeutic Exercises Modalities Cold Pack/Ice Massage Next Visit Focus/Plan Next Note Type Treatment Note Next Visit Plan Progress hip abductior and extensor strengthening, abdominal drawing in progression.
--- NOTE | 2019-06-25 10:30 | PT.OTN ---
Current Diagnoses Scoliosis, unspecified (06/25/19) Other spondylosis with radiculopathy, lumbosacral region (06/25/19) Spondylosis without myelopathy or radiculopathy, lumbosacral region (06/25/19) Arthrodesis status (06/25/19) Physical Therapy Treatment Note PT-OP-A Visit Information Start: 05/15/19 09:07 Freq: Status: Active Protocol: Document 06/25/19 09:50 MB (Rec: 06/25/19 10:30 MB [id number]) Out-Patient Physical Therapy Visit Information Visit Information Visit Type Treatment Note Visit Start Time 09:50 Visit Stop Time 10:30 Total Visit Minutes 40 Visit Number 5/10 Number of WIRE THREADER Visits 0 PT-OP-B Current Condition Start: 05/15/19 09:07 Freq: Status: Active Protocol: Document 05/15/19 14:33 MB (Rec: 05/15/19 15:07 MB [id number]) Current Condition History of Current Condition Onset Date Gradual Current Complaints Chronic LB pain and L lateral tingling and pain, B LE/foot neuropathy History of Current Condition Hx scoliosis, cervical fusion and L2-4 fusion. Ongoing spinal changes with curvature, severe pelvic obliquities with left iliac crest 3/4-1 inch higher than the right, anterior rotation of the left pelvis. Pt reports long history of peripheral neuropathy. 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 Prior Treatments and Tests Sx PT in the past that she did not care for in that she was given a lot of exercises and they might have exacerbated pain, PT focused on her going through her exercises during tx Future Testing and Treatments Planned Follow-up with neurologist Developmental History Developmental History See above. Hx of scoliotic changes since childhood Treatment Goals Patient/Caregiver Goals To decrease pain Prior Functional Status Baseline Function- ADL's Independent Baseline Function- Mobility Independent PT-OP-C Subjective Start: 05/15/19 09:07 Freq: Status: Active Protocol: Document 06/25/19 09:50 MB (Rec: 06/25/19 10:30 MB [id number]) OP-PT Subjective Patient Comments Patient Comments Pt has been sick for 2 weeks and is just feeling better. Her upper feels better. She had been feeling better when she was doing her exercises but has not been as active during her respiratory sickness. PT-OP-D Balance Start: 05/15/19 09:07 Freq: Status: Active Protocol: Document 05/15/19 14:33 MB (Rec: 05/15/19 15:07 MB [id number]) OP-PT Balance Assessment Standing Balance Static Standing Balance Ability Good Standing Balance Comments Romberg with eyes opened and closed 30 sec. SLS right 7 sec and then LOB; SLS left 7 sec and then LOB Downing Fall Scale Copyright Permission PT-OP-G Mobility & Gait Start: 05/15/19 09:07 Freq: Status: Active Protocol: Document 05/15/19 14:33 MB (Rec: 05/15/19 15:07 MB [id number]) OP Gait Assessment Gait Gait Assistance Required: Independent Gait Deviations General Gait Pattern Within Normal Limits Comments Gait Comments Functionally, pt does appear to have functional leg length difference related to pelvic changes--elevated left iliac crest and anteriorly rotated left pelvis. PT-OP-K Range of Motion Start: 05/15/19 09:07 Freq: Status: Active Protocol: Document 05/15/19 14:33 MB (Rec: 05/15/19 15:07 MB [id number]) Lumbar Spine Range of Motion Lumbar Spine Active Comments Given fusions and scoliotic changes with right thoracic convexity and left lumbar convexity (that appears to be functionally corrected for straightened spine but left pelvis is affected, elevated and rotated), repeated flexion and extension and SB in standing deferred. Hip Goniometric Range of Motion Hip ROM Limitations Comments SLS right 80 deg; left 70 deg PT-OP-L Special Tests Start: 05/15/19 09:07 Freq: Status: Active Protocol: Document 05/15/19 14:33 MB (Rec: 05/15/19 15:07 MB [id number]) Special Tests Lumbar Spine Special Tests Slump Test Results Negative for tingling and pt reports B increased stretch posterior legs >L PT-OP-M Strength Start: 05/15/19 09:07 Freq: Status: Active Protocol: Document 05/15/19 14:33 MB (Rec: 05/15/19 15:07 MB [id number]) Hip Strength Hip Manual Muscle Testing Left Flexion (L2) 4 Good Abduction 3+ Fair+ Comments Supine Right Flexion (L2) 4 Good Abduction 3+ Fair+ Comments Supine Knee Strength Knee Manual Muscle Testing Left Flexion (S2) 4 Good Extension (L3) 5 Normal Comments Supine Right Flexion (S2) 4 Good Extension (L3) 5 Normal Comments Supine Ankle/Foot Strength Ankle and Foot Manual Muscle Testing Left Dorsiflexion (L4) 5 Normal Plantarflexion (S1) 4 Good Right Dorsiflexion (L4) 5 Normal Plantarflexion (S1) 4 Good Toe Strength Toe Manual Muscle Testing Great Toe Comments B great toe extension 3+/5 PT-OP-Q Treatments Start: 05/15/19 09:07 Freq: Status: Active Protocol: Document 06/25/19 09:50 MB (Rec: 06/25/19 10:30 MB [id number]) Therapeutic Exercises Supine Exercises Diaphragmatic breathing Comments In hook lying Thoracic stretching, pect stretch, shooulder flexion Comments Performed to improve lung and thoracic mobility this date Pelvic realignment exercises Comments Performed this date, pt to con 't at home Sidelying Exercises Sidelying QL stretch Comments Sidelying QL stretch and some coughing PT-OP-T Assessment and Plan Start: 05/15/19 09:07 Freq: Status: Active Protocol: Document 06/25/19 09:50 MB (Rec: 06/25/19 10:30 MB [id number]) Physical Therapy Assessment Rehab Potential Rehabilitation Potential Good Evaluation Complexity Number of Personal Factors/Comorbidities 1-2 Number of Body Systems Impaired 1-2 Clinical Presentation at Evaluation Stable Impairments Impairments Balance,Functional Activities, Functional Mobility,Gait,Pain, Posture,ROM,Sensation,Soft Tissue Mobility,Strength Goals Six Long-Term Goal (LTG) Pt will perform B Tandem to 30 sec to reflect improved balance by 07/15/19. Five Mountain Or [place]acier Guide Goal (LTG) Pt will perform progressive HEP with I including pelvic realignment, flexibility, core and LE strengthening and balance exercises by 07/15/19. Four Impairment Weakness Long-Term Goal (LTG) Pt will present with improved B great toe extension strength to 4/5 by 07/15/19. Three Impairment Weakness Long-Term Goal (LTG) Pt will present with B hip flexion, abduction, knee flexion and extension strength to 5/5 by 07/15/19. Two Impairment Decreased Flexibility Mountain Or Glacier Guide Goal (LTG) Pt will present with B passive straight leg raise to 85 deg to improve functional flexibility by 07/15/19. One Impairment Pain Mountain Or [place]ier Guide Goal (LTG) Pain will report a 65% improvement in back and LLE pain by 07/15/19. Assessment Summary Assessment Initiated thoracic stretching this date to assist with breathing. This date, pt reports that she had a brain bleed in 2000 and was in the ICU for 3 weeks. She states she had a coiling (despite it being a bleed). She had a sudden onset of head pain for 3 days. 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 Physical Therapy Plan Frequency and Duration Frequency of Treatment 2x/Week Duration of Treatment 8 weeks Plan of Care Start Date 05/15/19 Plan of Care End Date 07/16/19 Therapeutic Interventions Therapeutic Interventions Aquatic Therapy,Balance Training,Coordination Training ,Home Exercise Program,Manual Therapy,Neuromuscular Re- education,Patient/Caregiver Education,Self-Care/Home Management,Sensory Integration ,Soft Tissue Mobilization, Taping,Therapeutic Activities, Therapeutic Exercises Modalities Cold Pack/Ice Massage Next Visit Focus/Plan Next Note Type Treatment Note Next Visit Plan Progress hip abductior and extensor strengthening, abdominal drawing in progression. Consider adding pect stretch.
--- NOTE | 2019-06-27 10:28 | PT.OTN ---
Current Diagnoses Scoliosis, unspecified (06/27/19) Other spondylosis with radiculopathy, lumbosacral region (06/27/19) Spondylosis without myelopathy or radiculopathy, lumbosacral region (06/27/19) Arthrodesis status (06/27/19) Physical Therapy Treatment Note PT-OP-A Visit Information Start: 05/15/19 09:07 Freq: Status: Active Protocol: Document 06/27/19 09:48 MB (Rec: 06/27/19 10:28 MB [id number]) Out-Patient Physical Therapy Visit Information Visit Information Visit Type Treatment Note Visit Start Time 09:50 Visit Stop Time 10:30 Total Visit Minutes 40 Visit Number 6 Number of MULE TENDER Visits 0 PT-OP-B Current Condition Start: 05/15/19 09:07 Freq: Status: Active Protocol: Document 05/15/19 14:33 MB (Rec: 05/15/19 15:07 MB [id number]) Current Condition History of Current Condition Onset Date Gradual Current Complaints Chronic LB pain and L lateral tingling and pain, B LE/foot neuropathy History of Current Condition Hx scoliosis, cervical fusion and L2-4 fusion. Ongoing spinal changes with curvature, severe pelvic obliquities with left iliac crest 3/4-1 inch higher than the right, anterior rotation of the left pelvis. Pt reports long history of peripheral neuropathy. 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 Prior Treatments and Tests Sx PT in the past that she did not care for in that she was given a lot of exercises and they might have exacerbated pain, PT focused on her going through her exercises during tx Future Testing and Treatments Planned Follow-up with neurologist Developmental History Developmental History See above. Hx of scoliotic changes since childhood Treatment Goals Patient/Caregiver Goals To decrease pain Prior Functional Status Baseline Function- ADL's Independent Baseline Function- Mobility Independent PT-OP-C Subjective Start: 05/15/19 09:07 Freq: Status: Active Protocol: Document 06/27/19 09:48 MB (Rec: 06/27/19 10:28 MB [id number]) OP-PT Subjective Patient Comments Patient Comments Pt brings in her ball to inflate and her exercises. She has pain in her posterio hip. Pt has had injections in the past for bursitis. PT-OP-D Balance Start: 05/15/19 09:07 Freq: Status: Active Protocol: Document 05/15/19 14:33 MB (Rec: 05/15/19 15:07 MB [id number]) OP-PT Balance Assessment Standing Balance Static Standing Balance Ability Good Standing Balance Comments Romberg with eyes opened and closed 30 sec. SLS right 7 sec and then LOB; SLS left 7 sec and then LOB Downing Fall Scale Copyright Permission PT-OP-G Mobility & Gait Start: 05/15/19 09:07 Freq: Status: Active Protocol: Document 05/15/19 14:33 MB (Rec: 05/15/19 15:07 MB [id number]) OP Gait Assessment Gait Gait Assistance Required: Independent Gait Deviations General Gait Pattern Within Normal Limits Comments Gait Comments Functionally, pt does appear to have functional leg length difference related to pelvic changes--elevated left iliac crest and anteriorly rotated left pelvis. PT-OP-K Range of Motion Start: 05/15/19 09:07 Freq: Status: Active Protocol: Document 05/15/19 14:33 MB (Rec: 05/15/19 15:07 MB [id number]) Lumbar Spine Range of Motion Lumbar Spine Active Comments Given fusions and scoliotic changes with right thoracic convexity and left lumbar convexity (that appears to be functionally corrected for straightened spine but left pelvis is affected, elevated and rotated), repeated flexion and extension and SB in standing deferred. Hip Goniometric Range of Motion Hip ROM Limitations Comments SLS right 80 deg; left 70 deg PT-OP-L Special Tests Start: 05/15/19 09:07 Freq: Status: Active Protocol: Document 05/15/19 14:33 MB (Rec: 05/15/19 15:07 MB [id number]) Special Tests Lumbar Spine Special Tests Slump Test Results Negative for tingling and pt reports B increased stretch posterior legs >L PT-OP-M Strength Start: 05/15/19 09:07 Freq: Status: Active Protocol: Document 05/15/19 14:33 MB (Rec: 05/15/19 15:07 MB [id number]) Hip Strength Hip Manual Muscle Testing Left Flexion (L2) 4 Good Abduction 3+ Fair+ Comments Supine Right Flexion (L2) 4 Good Abduction 3+ Fair+ Comments Supine Knee Strength Knee Manual Muscle Testing Left Flexion (S2) 4 Good Extension (L3) 5 Normal Comments Supine Right Flexion (S2) 4 Good Extension (L3) 5 Normal Comments Supine Ankle/Foot Strength Ankle and Foot Manual Muscle Testing Left Dorsiflexion (L4) 5 Normal Plantarflexion (S1) 4 Good Right Dorsiflexion (L4) 5 Normal Plantarflexion (S1) 4 Good Toe Strength Toe Manual Muscle Testing Great Toe Comments B great toe extension 3+/5 PT-OP-Q Treatments Start: 05/15/19 09:07 Freq: Status: Active Protocol: Document 06/27/19 09:48 MB (Rec: 06/27/19 10:28 MB [id number]) Therapeutic Exercises Supine Exercises LARON stretch Comments LARON stretch is a part of exercise program, reperformed Racquet ball massage lateral proximal hamstring Comments Initiated today d/t pain at the area. Sidelying Exercises Open book Comments Open book in side lying Other Exercises Quadriped Thread the Needle Comments Performed and added to HEP, pt has limited thoracic mobility PT-OP-T Assessment and Plan Start: 05/15/19 09:07 Freq: Status: Active Protocol: Document 06/27/19 09:48 MB (Rec: 06/27/19 10:28 MB [id number]) Physical Therapy Assessment Rehab Potential Rehabilitation Potential Good Evaluation Complexity Number of Personal Factors/Comorbidities 1-2 Number of Body Systems Impaired 1-2 Clinical Presentation at Evaluation Stable Impairments Impairments Balance,Functional Activities, Functional Mobility,Gait,Pain, Posture,ROM,Sensation,Soft Tissue Mobility,Strength Goals Six Assisted Goal (LTG) Pt will perform B Tandem to 30 sec to reflect improved balance by 07/15/19. Five Assisted Goal (LTG) Pt will perform progressive HEP with I including pelvic realignment, flexibility, core and LE strengthening and balance exercises by 07/15/19. Four Impairment Weakness Welding Operator Goal (LTG) Pt will present with improved B great toe extension strength to 4/5 by 07/15/19. Three Impairment Weakness Assisted Goal (LTG) Pt will present with B hip flexion, abduction, knee flexion and extension strength to 5/5 by 07/15/19. Two Impairment Decreased Flexibility Assisted Goal (LTG) Pt will present with B passive straight leg raise to 85 deg to improve functional flexibility by 07/15/19. One Impairment Pain Assisted Goal (LTG) Pain will report a 65% improvement in back and LLE pain by 07/15/19. Assessment Summary Assessment Pt reports pain at her lateral hamstring attachment near lateral ischial tuberosity. Initiated racquet ball massage to the area. Also added thoracic flexibility exercises for HEP. Physical Therapy Plan Frequency and Duration Frequency of Treatment 2x/Week Duration of Treatment 8 weeks Plan of Care Start Date 05/15/19 Plan of Care End Date 07/16/19 Therapeutic Interventions Therapeutic Interventions Aquatic Therapy,Balance Training,Coordination Training ,Home Exercise Program,Manual Therapy,Neuromuscular Re- education,Patient/Caregiver Education,Self-Care/Home Management,Sensory Integration ,Soft Tissue Mobilization, Taping,Therapeutic Activities, Therapeutic Exercises Modalities Cold Pack/Ice Massage Next Visit Focus/Plan Next Note Type Treatment Note Next Visit Plan Progress hip abductior and extensor strengthening, abdominal drawing in progression. Consider adding pect stretch.
--- NOTE | 2019-07-02 10:29 | PT.OTN ---
Current Diagnoses Scoliosis, unspecified (07/02/19) Other spondylosis with radiculopathy, lumbosacral region (07/02/19) Spondylosis without myelopathy or radiculopathy, lumbosacral region (07/02/19) Arthrodesis status (07/02/19) Physical Therapy Treatment Note PT-OP-A Visit Information Start: 05/15/19 09:07 Freq: Status: Active Protocol: Document 07/02/19 09:48 MB (Rec: 07/02/19 10:28 MB [id number]) Out-Patient Physical Therapy Visit Information Visit Information Visit Type Treatment Note Visit Start Time 09:48 Visit Stop Time 10:28 Total Visit Minutes 40 Visit Number 02/21 Number of ADVANCED PRACTICE NURSE PSYCHOTHERAPIST Visits 0 PT-OP-B Current Condition Start: 05/15/19 09:07 Freq: Status: Active Protocol: Document 05/15/19 14:33 MB (Rec: 05/15/19 15:07 MB [id number]) Current Condition History of Current Condition Onset Date Gradual Current Complaints Chronic LB pain and L lateral tingling and pain, B LE/foot neuropathy History of Current Condition Hx scoliosis, cervical fusion and L2-4 fusion. Ongoing spinal changes with curvature, severe pelvic obliquities with left iliac crest 3/4-1 inch higher than the right, anterior rotation of the left pelvis. Pt reports long history of peripheral neuropathy. 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 Prior Treatments and Tests Sx PT in the past that she did not care for in that she was given a lot of exercises and they might have exacerbated pain, PT focused on her going through her exercises during tx Future Testing and Treatments Planned Follow-up with neurologist Developmental History Developmental History See above. Hx of scoliotic changes since childhood Treatment Goals Patient/Caregiver Goals To decrease pain Prior Functional Status Baseline Function- ADL's Independent Baseline Function- Mobility Independent PT-OP-C Subjective Start: 05/15/19 09:07 Freq: Status: Active Protocol: Document 07/02/19 09:48 MB (Rec: 07/02/19 10:28 MB [id number]) OP-PT Subjective Patient Comments Patient Comments Pt reports occ onset of B SI and right lateral leg pain that comes and goes and is worse with this weather (cold dampness). PT-OP-D Balance Start: 05/15/19 09:07 Freq: Status: Active Protocol: Document 05/15/19 14:33 MB (Rec: 05/15/19 15:07 MB [id number]) OP-PT Balance Assessment Standing Balance Static Standing Balance Ability Good Standing Balance Comments Romberg with eyes opened and closed 30 sec. SLS right 7 sec and then LOB; SLS left 7 sec and then LOB Downing Fall Scale Copyright Permission PT-OP-G Mobility & Gait Start: 05/15/19 09:07 Freq: Status: Active Protocol: Document 05/15/19 14:33 MB (Rec: 05/15/19 15:07 MB [id number]) OP Gait Assessment Gait Gait Assistance Required: Independent Gait Deviations General Gait Pattern Within Normal Limits Comments Gait Comments Functionally, pt does appear to have functional leg length difference related to pelvic changes--elevated left iliac crest and anteriorly rotated left pelvis. PT-OP-K Range of Motion Start: 05/15/19 09:07 Freq: Status: Active Protocol: Document 05/15/19 14:33 MB (Rec: 05/15/19 15:07 MB [id number]) Lumbar Spine Range of Motion Lumbar Spine Active Comments Given fusions and scoliotic changes with right thoracic convexity and left lumbar convexity (that appears to be functionally corrected for straightened spine but left pelvis is affected, elevated and rotated), repeated flexion and extension and SB in standing deferred. Hip Goniometric Range of Motion Hip ROM Limitations Comments SLS right 80 deg; left 70 deg PT-OP-L Special Tests Start: 05/15/19 09:07 Freq: Status: Active Protocol: Document 05/15/19 14:33 MB (Rec: 05/15/19 15:07 MB [id number]) Special Tests Lumbar Spine Special Tests Slump Test Results Negative for tingling and pt reports B increased stretch posterior legs >L PT-OP-M Strength Start: 05/15/19 09:07 Freq: Status: Active Protocol: Document 05/15/19 14:33 MB (Rec: 05/15/19 15:07 MB [id number]) Hip Strength Hip Manual Muscle Testing Left Flexion (L2) 4 Good Abduction 3+ Fair+ Comments Supine Right Flexion (L2) 4 Good Abduction 3+ Fair+ Comments Supine Knee Strength Knee Manual Muscle Testing Left Flexion (S2) 4 Good Extension (L3) 5 Normal Comments Supine Right Flexion (S2) 4 Good Extension (L3) 5 Normal Comments Supine Ankle/Foot Strength Ankle and Foot Manual Muscle Testing Left Dorsiflexion (L4) 5 Normal Plantarflexion (S1) 4 Good Right Dorsiflexion (L4) 5 Normal Plantarflexion (S1) 4 Good Toe Strength Toe Manual Muscle Testing Great Toe Comments B great toe extension 3+/5 PT-OP-Q Treatments Start: 05/15/19 09:07 Freq: Status: Active Protocol: Document 07/02/19 09:48 MB (Rec: 07/02/19 10:28 MB [id number]) Therapeutic Exercises Supine Exercises Jaden stretch Comments Performed this date with progressive heel to buttock for quad stretch Sitting Exercises Rolling pin quad massage Comments Rolling pin quad massage in sitting Manual Therapy Treatment Soft Tissue Mobilization Right vastus lateralis Comments STM right vastus lateralis with CFM rolling pin PT-OP-T Assessment and Plan Start: 05/15/19 09:07 Freq: Status: Active Protocol: Document 07/02/19 09:48 MB (Rec: 07/02/19 10:28 MB [id number]) Physical Therapy Assessment Rehab Potential Rehabilitation Potential Good Evaluation Complexity Number of Personal Factors/Comorbidities 1-2 Number of Body Systems Impaired 1-2 Clinical Presentation at Evaluation Stable Impairments Impairments Balance,Functional Activities, Functional Mobility,Gait,Pain, Posture,ROM,Sensation,Soft Tissue Mobility,Strength Goals Six Fdc Goal (LTG) Pt will perform B Tandem to 30 sec to reflect improved balance by 07/15/19. Five Fdc Goal (LTG) Pt will perform progressive HEP with I including pelvic realignment, flexibility, core and LE strengthening and balance exercises by 07/15/19. Four Impairment Weakness Refractory Bricklayer Goal (LTG) Pt will present with improved B great toe extension strength to 4/5 by 07/15/19. Three Impairment Weakness Refractory Bricklayer Goal (LTG) Pt will present with B hip flexion, abduction, knee flexion and extension strength to 5/5 by 07/15/19. Two Impairment Decreased Flexibility Fdc Goal (LTG) Pt will present with B passive straight leg raise to 85 deg to improve functional flexibility by 07/15/19. One Impairment Pain Refractory Bricklayer Goal (LTG) Pain will report a 65% improvement in back and LLE pain by 07/15/19. Assessment Summary Assessment Initiated STM with rolling pin this date to help with pt's right lateral leg tension and pain. Progress core and hip strengthening. Physical Therapy Plan Frequency and Duration Frequency of Treatment 2x/Week Duration of Treatment 8 weeks Plan of Care Start Date 05/15/19 Plan of Care End Date 07/16/19 Therapeutic Interventions Therapeutic Interventions Aquatic Therapy,Balance Training,Coordination Training ,Home Exercise Program,Manual Therapy,Neuromuscular Re- education,Patient/Caregiver Education,Self-Care/Home Management,Sensory Integration ,Soft Tissue Mobilization, Taping,Therapeutic Activities, Therapeutic Exercises Modalities Cold Pack/Ice Massage Next Visit Focus/Plan Next Note Type Treatment Note Next Visit Plan Progress hip abductior and extensor strengthening, abdominal drawing in progression. Consider adding pect stretch.
--- NOTE | 2019-07-04 10:28 | PT.OTN ---
Current Diagnoses Scoliosis, unspecified (07/04/19) Other spondylosis with radiculopathy, lumbosacral region (07/04/19) Spondylosis without myelopathy or radiculopathy, lumbosacral region (07/04/19) Arthrodesis status (07/04/19) Physical Therapy Treatment Note PT-OP-A Visit Information Start: 05/15/19 09:07 Freq: Status: Active Protocol: Document 07/04/19 09:48 MB (Rec: 07/04/19 10:28 MB [id number]) Out-Patient Physical Therapy Visit Information Visit Information Visit Type Treatment Note Visit Start Time 09:48 Visit Stop Time 10:28 Total Visit Minutes 40 Visit Number 8/10 Number of ACCORDION TUNER Visits 0 PT-OP-B Current Condition Start: 05/15/19 09:07 Freq: Status: Active Protocol: Document 05/15/19 14:33 MB (Rec: 05/15/19 15:07 MB [id number]) Current Condition History of Current Condition Onset Date Gradual Current Complaints Chronic LB pain and L lateral tingling and pain, B LE/foot neuropathy History of Current Condition Hx scoliosis, cervical fusion and L2-4 fusion. Ongoing spinal changes with curvature, severe pelvic obliquities with left iliac crest 3/4-1 inch higher than the right, anterior rotation of the left pelvis. Pt reports long history of peripheral neuropathy. 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 Prior Treatments and Tests Sx PT in the past that she did not care for in that she was given a lot of exercises and they might have exacerbated pain, PT focused on her going through her exercises during tx Future Testing and Treatments Planned Follow-up with neurologist Developmental History Developmental History See above. Hx of scoliotic changes since childhood Treatment Goals Patient/Caregiver Goals To decrease pain Prior Functional Status Baseline Function- ADL's Independent Baseline Function- Mobility Independent PT-OP-C Subjective Start: 05/15/19 09:07 Freq: Status: Active Protocol: Document 07/04/19 09:48 MB (Rec: 07/04/19 10:28 MB [id number]) OP-PT Subjective Patient Comments Patient Comments Pt states that her right lateral leg is better after rolling pin. She con't with posterior SI pain. PT-OP-D Balance Start: 05/15/19 09:07 Freq: Status: Active Protocol: Document 05/15/19 14:33 MB (Rec: 05/15/19 15:07 MB [id number]) OP-PT Balance Assessment Standing Balance Static Standing Balance Ability Good Standing Balance Comments Romberg with eyes opened and closed 30 sec. SLS right 7 sec and then LOB; SLS left 7 sec and then LOB Downing Fall Scale Copyright Permission PT-OP-G Mobility & Gait Start: 05/15/19 09:07 Freq: Status: Active Protocol: Document 05/15/19 14:33 MB (Rec: 05/15/19 15:07 MB [id number]) OP Gait Assessment Gait Gait Assistance Required: Independent Gait Deviations General Gait Pattern Within Normal Limits Comments Gait Comments Functionally, pt does appear to have functional leg length difference related to pelvic changes--elevated left iliac crest and anteriorly rotated left pelvis. PT-OP-K Range of Motion Start: 05/15/19 09:07 Freq: Status: Active Protocol: Document 05/15/19 14:33 MB (Rec: 05/15/19 15:07 MB [id number]) Lumbar Spine Range of Motion Lumbar Spine Active Comments Given fusions and scoliotic changes with right thoracic convexity and left lumbar convexity (that appears to be functionally corrected for straightened spine but left pelvis is affected, elevated and rotated), repeated flexion and extension and SB in standing deferred. Hip Goniometric Range of Motion Hip ROM Limitations Comments SLS right 80 deg; left 70 deg PT-OP-L Special Tests Start: 05/15/19 09:07 Freq: Status: Active Protocol: Document 05/15/19 14:33 MB (Rec: 05/15/19 15:07 MB [id number]) Special Tests Lumbar Spine Special Tests Slump Test Results Negative for tingling and pt reports B increased stretch posterior legs >L PT-OP-M Strength Start: 05/15/19 09:07 Freq: Status: Active Protocol: Document 05/15/19 14:33 MB (Rec: 05/15/19 15:07 MB [id number]) Hip Strength Hip Manual Muscle Testing Left Flexion (L2) 4 Good Abduction 3+ Fair+ Comments Supine Right Flexion (L2) 4 Good Abduction 3+ Fair+ Comments Supine Knee Strength Knee Manual Muscle Testing Left Flexion (S2) 4 Good Extension (L3) 5 Normal Comments Supine Right Flexion (S2) 4 Good Extension (L3) 5 Normal Comments Supine Ankle/Foot Strength Ankle and Foot Manual Muscle Testing Left Dorsiflexion (L4) 5 Normal Plantarflexion (S1) 4 Good Right Dorsiflexion (L4) 5 Normal Plantarflexion (S1) 4 Good Toe Strength Toe Manual Muscle Testing Great Toe Comments B great toe extension 3+/5 PT-OP-Q Treatments Start: 05/15/19 09:07 Freq: Status: Active Protocol: Document 07/04/19 09:48 MB (Rec: 07/04/19 10:28 MB [id number]) Therapeutic Exercises Supine Exercises Core progression--abdominal drawing in, heel slide, hip rotation Comments Initiated this date and added to HEP Pelvic realignment exercises Comments Performed this date and pt to con't at home Manual Therapy Treatment Other Other Manual Treatments STM and MWM right TFL and hip rotators, pt prone. STM B paraspinals and rib recoil in prone. PT-OP-T Assessment and Plan Start: 05/15/19 09:07 Freq: Status: Active Protocol: Document 07/04/19 09:48 MB (Rec: 07/04/19 10:28 MB [id number]) Physical Therapy Assessment Rehab Potential Rehabilitation Potential Good Evaluation Complexity Number of Personal Factors/Comorbidities 1-2 Number of Body Systems Impaired 1-2 Clinical Presentation at Evaluation Stable Impairments Impairments Balance,Functional Activities, Functional Mobility,Gait,Pain, Posture,ROM,Sensation,Soft Tissue Mobility,Strength Goals Six Naturalization Examiner Goal (LTG) Pt will perform B Tandem to 30 sec to reflect improved balance by 07/15/19. Five Naturalization Examiner Goal (LTG) Pt will perform progressive HEP with I including pelvic realignment, flexibility, core and LE strengthening and balance exercises by 07/15/19. Four Impairment Weakness Naturalization Examiner Goal (LTG) Pt will present with improved B great toe extension strength to 4/5 by 07/15/19. Three Impairment Weakness Fpc Goal (LTG) Pt will present with B hip flexion, abduction, knee flexion and extension strength to 5/5 by 07/15/19. Two Impairment Decreased Flexibility Naturalization Examiner Goal (LTG) Pt will present with B passive straight leg raise to 85 deg to improve functional flexibility by 07/15/19. One Impairment Pain Fpc Goal (LTG) Pain will report a 65% improvement in back and LLE pain by 07/15/19. Assessment Summary Assessment Progress pect stretch and hip strengthening. Ed pt to stop LARON stretch since she thinks it might be increasing pain. Physical Therapy Plan Frequency and Duration Frequency of Treatment 2x/Week Duration of Treatment 8 weeks Plan of Care Start Date 05/15/19 Plan of Care End Date 07/16/19 Therapeutic Interventions Therapeutic Interventions Aquatic Therapy,Balance Training,Coordination Training ,Home Exercise Program,Manual Therapy,Neuromuscular Re- education,Patient/Caregiver Education,Self-Care/Home Management,Sensory Integration ,Soft Tissue Mobilization, Taping,Therapeutic Activities, Therapeutic Exercises Modalities Cold Pack/Ice Massage Next Visit Focus/Plan Next Note Type Treatment Note Next Visit Plan Progress hip abductior and extensor strengthening. Consider adding pect stretch. Also consider scapular retraction in standing with band.
--- NOTE | 2019-07-11 10:30 | PT.OTN ---
Current Diagnoses Scoliosis, unspecified (07/11/19) Other spondylosis with radiculopathy, lumbosacral region (07/11/19) Spondylosis without myelopathy or radiculopathy, lumbosacral region (07/11/19) Arthrodesis status (07/11/19) Physical Therapy Treatment Note PT-OP-A Visit Information Start: 05/15/19 09:07 Freq: Status: Active Protocol: Document 07/11/19 09:50 MB (Rec: 07/11/19 10:29 MB [id number]) Out-Patient Physical Therapy Visit Information Visit Information Visit Type Treatment Note Visit Start Time 09:50 Visit Stop Time 10:30 Total Visit Minutes 40 Visit Number 04/24 Number of SHIFT SUPERVISOR MELTING Visits 0 PT-OP-B Current Condition Start: 05/15/19 09:07 Freq: Status: Active Protocol: Document 05/15/19 14:33 MB (Rec: 05/15/19 15:07 MB [id number]) Current Condition History of Current Condition Onset Date Gradual Current Complaints Chronic LB pain and L lateral tingling and pain, B LE/foot neuropathy History of Current Condition Hx scoliosis, cervical fusion and L2-4 fusion. Ongoing spinal changes with curvature, severe pelvic obliquities with left iliac crest 3/4-1 inch higher than the right, anterior rotation of the left pelvis. Pt reports long history of peripheral neuropathy. 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 Prior Treatments and Tests Sx PT in the past that she did not care for in that she was given a lot of exercises and they might have exacerbated pain, PT focused on her going through her exercises during tx Future Testing and Treatments Planned Follow-up with neurologist Developmental History Developmental History See above. Hx of scoliotic changes since childhood Treatment Goals Patient/Caregiver Goals To decrease pain Prior Functional Status Baseline Function- ADL's Independent Baseline Function- Mobility Independent PT-OP-C Subjective Start: 05/15/19 09:07 Freq: Status: Active Protocol: Document 07/11/19 09:50 MB (Rec: 07/11/19 10:29 MB [id number]) OP-PT Subjective Patient Comments Patient Comments Pt had some cramping in the posterior right thigh with core progression exercise with lumbar rotation. PT-OP-D Balance Start: 05/15/19 09:07 Freq: Status: Active Protocol: Document 05/15/19 14:33 MB (Rec: 05/15/19 15:07 MB [id number]) OP-PT Balance Assessment Standing Balance Static Standing Balance Ability Good Standing Balance Comments Romberg with eyes opened and closed 30 sec. SLS right 7 sec and then LOB; SLS left 7 sec and then LOB Downing Fall Scale Copyright Permission PT-OP-G Mobility & Gait Start: 05/15/19 09:07 Freq: Status: Active Protocol: Document 05/15/19 14:33 MB (Rec: 05/15/19 15:07 MB [id number]) OP Gait Assessment Gait Gait Assistance Required: Independent Gait Deviations General Gait Pattern Within Normal Limits Comments Gait Comments Functionally, pt does appear to have functional leg length difference related to pelvic changes--elevated left iliac crest and anteriorly rotated left pelvis. PT-OP-K Range of Motion Start: 05/15/19 09:07 Freq: Status: Active Protocol: Document 05/15/19 14:33 MB (Rec: 05/15/19 15:07 MB [id number]) Lumbar Spine Range of Motion Lumbar Spine Active Comments Given fusions and scoliotic changes with right thoracic convexity and left lumbar convexity (that appears to be functionally corrected for straightened spine but left pelvis is affected, elevated and rotated), repeated flexion and extension and SB in standing deferred. Hip Goniometric Range of Motion Hip ROM Limitations Comments SLS right 80 deg; left 70 deg PT-OP-L Special Tests Start: 05/15/19 09:07 Freq: Status: Active Protocol: Document 05/15/19 14:33 MB (Rec: 05/15/19 15:07 MB [id number]) Special Tests Lumbar Spine Special Tests Slump Test Results Negative for tingling and pt reports B increased stretch posterior legs >L PT-OP-M Strength Start: 05/15/19 09:07 Freq: Status: Active Protocol: Document 05/15/19 14:33 MB (Rec: 05/15/19 15:07 MB [id number]) Hip Strength Hip Manual Muscle Testing Left Flexion (L2) 4 Good Abduction 3+ Fair+ Comments Supine Right Flexion (L2) 4 Good Abduction 3+ Fair+ Comments Supine Knee Strength Knee Manual Muscle Testing Left Flexion (S2) 4 Good Extension (L3) 5 Normal Comments Supine Right Flexion (S2) 4 Good Extension (L3) 5 Normal Comments Supine Ankle/Foot Strength Ankle and Foot Manual Muscle Testing Left Dorsiflexion (L4) 5 Normal Plantarflexion (S1) 4 Good Right Dorsiflexion (L4) 5 Normal Plantarflexion (S1) 4 Good Toe Strength Toe Manual Muscle Testing Great Toe Comments B great toe extension 3+/5 PT-OP-Q Treatments Start: 05/15/19 09:07 Freq: Status: Active Protocol: Document 07/11/19 09:50 MB (Rec: 07/11/19 10:29 MB [id number]) Therapeutic Exercises Supine Exercises Core progression--abdominal drawing in, heel slide, hip rotation Comments Performed this date Standing Exercises Hip abduction and extension with level 1 band Comments Performed this date and added to HEP Scapular retraction with shoulder extension and shoulder ER with level 1 band Comments Performed and added to HEP PT-OP-T Assessment and Plan Start: 05/15/19 09:07 Freq: Status: Active Protocol: Document 07/11/19 09:50 MB (Rec: 07/11/19 10:29 MB [id number]) Physical Therapy Assessment Rehab Potential Rehabilitation Potential Good Evaluation Complexity Number of Personal Factors/Comorbidities 1-2 Number of Body Systems Impaired 1-2 Clinical Presentation at Evaluation Stable Impairments Impairments Balance,Functional Activities, Functional Mobility,Gait,Pain, Posture,ROM,Sensation,Soft Tissue Mobility,Strength Goals Six Usp Goal (LTG) Pt will perform B Tandem to 30 sec to reflect improved balance by 07/15/19. Five Usp Goal (LTG) Pt will perform progressive HEP with I including pelvic realignment, flexibility, core and LE strengthening and balance exercises by 07/15/19. Four Impairment Weakness Usp Goal (LTG) Pt will present with improved B great toe extension strength to 4/5 by 07/15/19. Three Impairment Weakness Usp Goal (LTG) Pt will present with B hip flexion, abduction, knee flexion and extension strength to 5/5 by 07/15/19. Two Impairment Decreased Flexibility Robotics Application Engineer Goal (LTG) Pt will present with B passive straight leg raise to 85 deg to improve functional flexibility by 07/15/19. One Impairment Pain Usp Goal (LTG) Pain will report a 65% improvement in back and LLE pain by 07/15/19. Assessment Summary Assessment Progressed scapular and hip exercises this date. Anticipate d/c next treatment date. Physical Therapy Plan Frequency and Duration Frequency of Treatment 2x/Week Duration of Treatment 8 weeks Plan of Care Start Date 05/15/19 Plan of Care End Date 07/16/19 Therapeutic Interventions Therapeutic Interventions Aquatic Therapy,Balance Training,Coordination Training ,Home Exercise Program,Manual Therapy,Neuromuscular Re- education,Patient/Caregiver Education,Self-Care/Home Management,Sensory Integration ,Soft Tissue Mobilization, Taping,Therapeutic Activities, Therapeutic Exercises Modalities Cold Pack/Ice Massage Next Visit Focus/Plan Next Note Type Discharge Summary
--- NOTE | 2019-07-16 10:29 | PT.OTN ---
Current Diagnoses Scoliosis, unspecified (07/16/19) Other spondylosis with radiculopathy, lumbosacral region (07/16/19) Spondylosis without myelopathy or radiculopathy, lumbosacral region (07/16/19) Arthrodesis status (07/16/19) Physical Therapy Treatment Note PT-OP-A Visit Information Start: 05/15/19 09:07 Freq: Status: Active Protocol: Document 07/16/19 09:50 MB (Rec: 07/16/19 10:28 MB [id number]) Out-Patient Physical Therapy Visit Information Visit Information Visit Type Treatment Note Visit Start Time 09:50 Visit Stop Time 10:28 Total Visit Minutes 38 Visit Number 05/24 Number of TEACHER SELECTION SPECIALIST Visits 0 PT-OP-B Current Condition Start: 05/15/19 09:07 Freq: Status: Active Protocol: Document 05/15/19 14:33 MB (Rec: 05/15/19 15:07 MB [id number]) Current Condition History of Current Condition Onset Date Gradual Current Complaints Chronic LB pain and L lateral tingling and pain, B LE/foot neuropathy History of Current Condition Hx scoliosis, cervical fusion and L2-4 fusion. Ongoing spinal changes with curvature, severe pelvic obliquities with left iliac crest 3/4-1 inch higher than the right, anterior rotation of the left pelvis. Pt reports long history of peripheral neuropathy. 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 Prior Treatments and Tests Sx PT in the past that she did not care for in that she was given a lot of exercises and they might have exacerbated pain, PT focused on her going through her exercises during tx Future Testing and Treatments Planned Follow-up with neurologist Developmental History Developmental History See above. Hx of scoliotic changes since childhood Treatment Goals Patient/Caregiver Goals To decrease pain Prior Functional Status Baseline Function- ADL's Independent Baseline Function- Mobility Independent PT-OP-C Subjective Start: 05/15/19 09:07 Freq: Status: Active Protocol: Document 07/16/19 09:50 MB (Rec: 07/16/19 10:28 MB [id number]) OP-PT Subjective Patient Comments Patient Comments Pt states that she needs more therapy bands. Her left hip con't to bother her and she thinks this is d/t her OA. PT-OP-D Balance Start: 05/15/19 09:07 Freq: Status: Active Protocol: Document 05/15/19 14:33 MB (Rec: 05/15/19 15:07 MB [id number]) OP-PT Balance Assessment Standing Balance Static Standing Balance Ability Good Standing Balance Comments Romberg with eyes opened and closed 30 sec. SLS right 7 sec and then LOB; SLS left 7 sec and then LOB Downing Fall Scale Copyright Permission PT-OP-G Mobility & Gait Start: 05/15/19 09:07 Freq: Status: Active Protocol: Document 05/15/19 14:33 MB (Rec: 05/15/19 15:07 MB [id number]) OP Gait Assessment Gait Gait Assistance Required: Independent Gait Deviations General Gait Pattern Within Normal Limits Comments Gait Comments Functionally, pt does appear to have functional leg length difference related to pelvic changes--elevated left iliac crest and anteriorly rotated left pelvis. PT-OP-K Range of Motion Start: 05/15/19 09:07 Freq: Status: Active Protocol: Document 05/15/19 14:33 MB (Rec: 05/15/19 15:07 MB [id number]) Lumbar Spine Range of Motion Lumbar Spine Active Comments Given fusions and scoliotic changes with right thoracic convexity and left lumbar convexity (that appears to be functionally corrected for straightened spine but left pelvis is affected, elevated and rotated), repeated flexion and extension and SB in standing deferred. Hip Goniometric Range of Motion Hip ROM Limitations Comments SLS right 80 deg; left 70 deg PT-OP-L Special Tests Start: 05/15/19 09:07 Freq: Status: Active Protocol: Document 05/15/19 14:33 MB (Rec: 05/15/19 15:07 MB [id number]) Special Tests Lumbar Spine Special Tests Slump Test Results Negative for tingling and pt reports B increased stretch posterior legs >L PT-OP-M Strength Start: 05/15/19 09:07 Freq: Status: Active Protocol: Document 05/15/19 14:33 MB (Rec: 05/15/19 15:07 MB [id number]) Hip Strength Hip Manual Muscle Testing Left Flexion (L2) 4 Good Abduction 3+ Fair+ Comments Supine Right Flexion (L2) 4 Good Abduction 3+ Fair+ Comments Supine Knee Strength Knee Manual Muscle Testing Left Flexion (S2) 4 Good Extension (L3) 5 Normal Comments Supine Right Flexion (S2) 4 Good Extension (L3) 5 Normal Comments Supine Ankle/Foot Strength Ankle and Foot Manual Muscle Testing Left Dorsiflexion (L4) 5 Normal Plantarflexion (S1) 4 Good Right Dorsiflexion (L4) 5 Normal Plantarflexion (S1) 4 Good Toe Strength Toe Manual Muscle Testing Great Toe Comments B great toe extension 3+/5 PT-OP-Q Treatments Start: 05/15/19 09:07 Freq: Status: Active Protocol: Document 07/16/19 09:50 MB (Rec: 07/16/19 10:28 MB [id number]) Therapeutic Exercises Standing Exercises Hip abduction and extension with level 1 band Comments Performed this date with level 1 band Scapular retraction with shoulder extension and shoulder ER with level 1 band Comments Performed and performed with level 2 band PT-OP-T Assessment and Plan Start: 05/15/19 09:07 Freq: Status: Active Protocol: Document 07/16/19 09:50 MB (Rec: 07/16/19 10:28 MB [id number]) Physical Therapy Assessment Rehab Potential Rehabilitation Potential Good Evaluation Complexity Number of Personal Factors/Comorbidities 1-2 Number of Body Systems Impaired 1-2 Clinical Presentation at Evaluation Stable Impairments Impairments Balance,Functional Activities, Functional Mobility,Gait,Pain, Posture,ROM,Sensation,Soft Tissue Mobility,Strength Goals Six Correction Goal (LTG) Pt will perform B Tandem to 30 sec to reflect improved balance by 07/15/19. 07/16/19: Pt unable to get into position without UE support. Balance exercises have been initiated Five Correction Goal (LTG) Pt will perform progressive HEP with I including pelvic realignment, flexibility, core and LE strengthening and balance exercises by 07/15/19. 07/16/19 Goal met Four Impairment Weakness Watcher Lookout Tower Goal (LTG) Pt will present with improved B great toe extension strength to 4/5 by 07/15/19. 07/16/19: Pt presents with 5/5 left great toe extension and 4 /5 right great toe extension Three Impairment Weakness Correction Goal (LTG) Pt will present with B hip flexion, abduction, knee flexion and extension strength to 5/5 by 07/15/19. 07/16/19: Pt presents with 5/5 B hip flexion, knee flexion and extension, DF and PF. She presents with 4/5 right hip abduction Two Impairment Decreased Flexibility Correction Goal (LTG) Pt will present with B passive straight leg raise to 85 deg to improve functional flexibility by 07/15/19. 07/16/19: B passive SLR 75 deg One Impairment Pain Correction Goal (LTG) Pain will report a 65% improvement in back and LLE pain by 07/15/19. 07/16/19: Pt reports an overall 40% improvement in pain since starting PT. She reports ongoing hip pain that she thinks is d/t spinal changes and arthritis Assessment Summary Assessment Pt has met the following goals since starting PT: great toe extension strength, several other LE muscle group streght and performance of HEP. She con't with right hip abduction and great toe extension weakness with MMT 4/5. Pt reports an overall 40% improvement in pain since starting PT and con't with B hip and SI pain that intermittent but present. Her balance is poor and she states this id likely d/t her brain aneurysm. Balance exercises have been implemented. Along with the exercises listed above, did review all HEP exercises. Physical Therapy Plan Other Referrals/Consults Referrals/Consults Recommended Consider follow-up with provider about ongoing hip pain--she states this is B today. She thinks she has OA in right greater than left SI joint
== END 2019-07-16 10:45 ==
LOC: PHYS 09:45
PROVIDERS: PCP Internal Medicine; Visit Provider Registered Nurse
DX: M41.9 Scoliosis, unspecified (principal); M47.817 Spondylosis without myelopathy or radiculopathy, lumbosacral region; M47.27 Other spondylosis with radiculopathy, lumbosacral region; Z98.1 Arthrodesis status
CPT/HCPCS: 97110; 97140; 97162

== ENCOUNTER → 2019-09-01 17:55 | Outpatient (CLI) | payer MEDICARE, OTHER, SELFPAY | PROVIDERS: PCP Internal Medicine; Visit Provider Physician Assistant | DX: N30.00 Acute cystitis without hematuria (principal) | CPT/HCPCS: 87086 ==

== ENCOUNTER → 2019-09-26 17:19 | Outpatient (CLI) | payer MEDICARE, OTHER, SELFPAY | PROVIDERS: PCP Internal Medicine; Visit Provider Physician Assistant | DX: N39.0 Urinary tract infection, site not specified (principal) | CPT/HCPCS: 87086 ==

== ENCOUNTER → 2019-11-22 16:40 | Outpatient (CLI) | payer MEDICARE, OTHER, SELFPAY | PROVIDERS: PCP Internal Medicine; Visit Provider Physician Assistant | DX: N39.0 Urinary tract infection, site not specified (principal) | CPT/HCPCS: 87086 ==

== ENCOUNTER → 2021-03-19 11:41 | Outpatient (CLI) | payer MEDICARE, OTHER, SELFPAY | PROVIDERS: PCP Internal Medicine; Visit Provider Physician Assistant | DX: N34.3 Urethral syndrome, unspecified (principal) | CPT/HCPCS: 87077; 87086; 87186 ==

== ENCOUNTER → 2021-04-19 15:19 | Outpatient (CLI) | payer MEDICARE, OTHER, SELFPAY | PROVIDERS: PCP Internal Medicine; Visit Provider Nurse Practitioner Family | DX: R30.0 Dysuria (principal) | CPT/HCPCS: 87077; 87086; 87186 ==

== ENCOUNTER 2021-04-24 19:25 | Emergency (ER) | payer MEDICARE, OTHER, SELFPAY ==
[2021-04-24] VITALS (20 sets, daily range): BP systolic 99–125; BP diastolic 56–76; PULSE 80–96; RESP 14–23; TEMP 36.3; O2SAT 93–100; BMI 23.6
--- NOTE | 2021-04-24 | DI.RAD.S_ITS ---
PROCEDURE: XR ANKLE RT MIN 3V INDICATIONS: POST REDUCTION TECHNIQUE: 3 views of the ankle were acquired. COMPARISON: [facility], , XR ANKLE RT MIN 3V, 04/24/2021, 19:52. FINDINGS: Bones: Relocation of the ankle dislocation been performed. There is improved alignment of the trimalleolar ankle fracture. Mild residual lateral subluxation of the talus. Soft tissues: No tibiotalar joint effusion. Achilles tendon appears normal. IMPRESSION: Reduction of trimalleolar ankle fracture dislocation. Dictated by: Tommie Araya M.D. on 04/24/2021 at 21:10 Approved by: Tommie Araya M.D. on 04/24/2021 at 21:10
--- NOTE | 2021-04-24 19:32 | DI.RAD.S_ITS ---
PROCEDURE: XR ANKLE RT MIN 3V INDICATIONS: deformity fall TECHNIQUE: 3 views of the ankle were acquired. COMPARISON: None. FINDINGS: Examination limited by patient positioning factors and overlying material. Bones: Lateral dislocation of the talus. Moderately displaced distal fibular fracture. Probable posterior malleolar fracture. Lateral dislocation of a medial malleolar fracture. Soft tissues: No tibiotalar joint effusion. Achilles tendon appears normal. IMPRESSION: Trimalleolar ankle fracture dislocation. Dictated by: Tommie Araya M.D. on 04/24/2021 at 20:08 Approved by: Tommie Araya M.D. on 04/24/2021 at 20:09
--- NOTE | 2021-04-24 19:38 | DI.CT.S_ITS ---
PROCEDURE: CT HEAD/BRAIN WO CON INDICATIONS: fall hx of coil TECHNIQUE: Noncontrast 4.5 mm thick angled axial sections acquired from the foramen magnum to the vertex, with coronal and sagittal reformats. For radiation dose reduction, the following was used: automated exposure control, adjustment of mA and/or kV according to patient size. COMPARISON: None. FINDINGS: Image quality: Excellent. CSF spaces: Basal cisterns are patent. No extra-axial fluid collections. The ventricles are symmetric in size and shape. Brain: No intracranial bleeds or masses. There is cerebral volume loss for age, with resultant ventricular and sulcal prominence. There are periventricular and deep white matter chronic small vessel ischemic changes. There is intracranial internal carotid artery atherosclerosis. Skull and face: Calvarium and visualized facial bones appear intact, without suspicious lesions. Sinuses: Visualized sinuses and mastoids are clear. IMPRESSION: No acute intracranial abnormality. Dictated by: Tommie Araya M.D. on 04/24/2021 at 20:11 Approved by: Tommie Araya M.D. on 04/24/2021 at 20:11
--- NOTE | 2021-04-24 19:38 | DI.CT.S_ITS ---
PROCEDURE: CT CERVICAL SPINE WO CON INDICATIONS: fall TECHNIQUE: Noncontrast 3 mm thick sections acquired from the skull base to the T4 level. Sagittal and coronal reformats were then constructed. For radiation dose reduction, the following was used: automated exposure control, adjustment of mA and/or kV according to patient size. COMPARISON: None. FINDINGS: Image quality: Excellent. Bones: No fractures or dislocations. Visualized superior ribs are intact. Soft tissues: Prevertebral soft tissues are normal in thickness. No paravertebral hematomas. No apical pneumothoraces. IMPRESSION: No fracture. Dictated by: Tommie Araya M.D. on 04/24/2021 at 20:11 Approved by: Tommie Araya M.D. on 04/24/2021 at 20:12
[2021-04-24] MEDS: TET,DIPH,PERTUSS(ACELL),VAC/PF 0.5 ML SYRINGE IM (19:50)
[2021-04-24] MEDS: propofoL 200 MG/20 ML VIAL 75 MG IV (20:41)
--- NOTE | 2021-04-24 20:55 | ED.FALL ---
HPI - Fall General Chief Complaint: Trauma Stated Complaint: Fall Time Seen by Provider: 04/24/21 19:31 Source: patient and EMS Mode of arrival: EMS History of Present Illness HPI Narrative: Patient is a 75-year-old female who has a history of cerebral aneurysm that has been coiled a presenting after fall off ladder. She was only couple steps high when she slipped and fell. She has not obvious right ankle deformity. She says she crawled to her phone to call 911. She did not hit her head or lose consciousness. She has no neck pain in no other injury. She admits to drinking 1 glass of wine prior to her fall Related Data Home Medications Medication Instructions Recorded Confirmed benazepril 10 mg tablet 10 mg PO BID 03/28/19 04/19/21 levothyroxine 125 mcg tablet 125 mcg PO DAILY 03/28/19 04/19/21 (Synthroid) mecobalamin (vitamin B12) PO 03/28/19 04/19/21 omega-3 fatty acids [[place] [employer]] PO DAILY 03/28/19 04/19/21 rosuvastatin 5 mg tablet 5 mg PO DAILY 03/28/19 04/19/21 trazodone 50 mg tablet 100 - 150 mg PO DAILY PRN tab 03/28/19 04/19/21 vitamin b PO DAILY 03/28/19 04/19/21 Previous Rx's Medication Instructions Recorded lidocaine 5 % topical patch 1 patch TOP DAILY #30 each MDD 12 08/02/19 hours in a 24 hour period duloxetine 60 mg capsule,delayed 60 mg PO DAILY #90 cap MDD 60mg 12/15/20 release cephalexin 500 mg capsule 500 mg PO TID 7 Days #21 cap 04/19/21 phenazopyridine 200 mg tablet 200 mg PO TID 0 Days #6 tab 04/19/21 (Pyridium) hydrocodone 5 mg-acetaminophen 325 1 tab PO Q6H PRN #15 tab 04/24/21 mg tablet Allergies Allergy/AdvReac Type Severity Reaction Status Date / Time Sulfa (Sulfonamide Allergy Severe Nausea/headaches/hearing Verified 04/24/21 19:31 Antibiotics) loss iodine Allergy Unknown Verified 04/24/21 19:31 meperidine Allergy Unknown Verified 04/24/21 19:31 shellfish derived Allergy Unknown Verified 04/24/21 19:31 [id number] Reductase Allergy Unknown Verified 04/24/21 19:31 Inhibitor Review of Systems Review of Systems Narrative: GENERAL: Denies chills, fatigue, malaise, fever, sweats, travel HEENT: Denies sinus pain, ear pain, sore throat, difficulty swallowing, neck pain RESPIRATORY: Denies dyspnea, cough, wheezing, hemoptysis, sputum. CARDIOVASCULAR: Denies chest pain, palpitations, orthopnea, edema GASTROINTESTINAL: Denies nausea, vomiting, abdominal pain, diarrhea, constipation, melena. : Denies dysuria, frequency, incontinence, hematuria, urinary retention, flank pain. MUSCULOSKELETAL: See HPI SKIN: No rash, no erythema, no pruritus NEUROLOGIC: Denies weakness, dizziness, headache, numbness, change in speech, confusion PSYCHIATRIC: No concerning psychosocial issues. 12 point review of systems is negative except for those stated above and HPI Patient History Medical History (Updated 04/24/21 @ 22:11 by Raegan Mensah DO) UTI (urinary tract infection) Surgical History History of lumbosacral spine surgery Family History Mother Alzheimer disease Father Cerebral hemorrhage Brother Colon cancer Bladder cancer Prostate CA Non-Hodgkin lymphoma Social History Smoking Status: Former smoker Smoking Status: Former smoker alcohol intake frequency: other Alcohol type: wine Substance Use Type: does not use Exam Initial Vital Signs Initial Vital Signs: Vital Signs Pulse Rate 96 H 04/24/21 19:29 Pulse Oximetry 95 04/24/21 19:29 GENERAL: Alert well-appearing 75-year-old femaleand in no acute distress. HEENT: Head atraumatic,EOMI, pupils reactive, face symmetric, moist mucous membranes NECK: No vertebral tenderness no step-offs CARDIOVASCULAR: Regular rate and rhythm without murmurs, rubs or gallops. RESPIRATORY: Breath sounds equal bilaterally, no wheezes rales or rhonchi. ABDOMEN: Soft, nontender. Normoactive bowel sounds all 4 quadrants. No guarding or rebound. EXTREMITIES: Normal range of motion, no clubbing or edema. Neurovascularly intact. Pelvis stable no knee pain Right ankle deformity very faint pedal pulses no laceration NEUROLOGICAL: Alert and oriented x4. SKIN: Warm, dry, no laceration, no petechiae, no rashes or lesions. Procedures Orthopedic Fracture Reduction Fracture #1: Time Out Performed: Yes Side: right Fracture Reduction Location: tibia and fibula Analgesia: procedural sedation Technique: direct manipulation and traction/counter-traction Post-reduction neuro exam: intact Post-reduction vascular exam: intact (need doppler for pulse) Splint Applied: Yes Patient Tolerated Procedure: Well Orthopedic Splinting/Casting Injury #1: Side: right Lower Extremity Immobilizer: posterior splint and stirrup splint Other Orthopedic Equipment: crutches Post splinting neuro exam: intact Post splinting vascular exam: intact (doppler for pulse) Procedural Sedation Consent signed: Yes Time out performed: Yes Indication: fracture/dislocation reduction ASA Class: II Mallampati Airway Classification: Class I Preparation: cafeteria monitor applied, pulse oximeter, capnometry used, supplemental O2 applied, suction/airway equipment at bedside and IV secured IV Propofol dose (mg): 75 Intraservice time/total sedation time (min): 15 ED Sedation Level: Moderate (Concious) Patient Tolerated Procedure: Well Complications: hypoxia Interventions: Airway repositioned Course Orders Ordered: Discontinued Medications Hydrocodone Bitart/Acetaminophen (Hydrocodone/Acet 5/325 Prepack) 1 bottle MISC SEEINSTR ONE Stop: 04/24/21 22:13 Last Admin: 04/24/21 22:20 Dose: 1 bottle Documented by: AARON Diphtheria/Tetanus/Acell Pertussis (Tet,Diph,Pertuss(Acell),Vac/Pf 0.5 Ml Syringe) 0.5 ml IM .ONCE ONE Stop: 04/24/21 19:47 Last Admin: 04/24/21 19:50 Dose: 0.5 ml Documented by: AARON Propofol (Propofol 200 Mg/20 Ml Vial) 75 mg IV NOW ONE Stop: 04/24/21 20:12 Last Admin: 04/24/21 20:41 Dose: 75 mg Documented by: AARON Vital Signs Vital signs: Vital Signs - 8 hr 04/24/21 19:29 04/24/21 19:30 04/24/21 19:31 Temperature 97.4 F L Pulse Rate 96 H 95 H 94 H Respiratory Rate 20 Blood Pressure 122/76 122/76 Pulse Oximetry 95 96 98 04/24/21 20:01 04/24/21 20:30 04/24/21 20:31 Temperature Pulse Rate 90 89 92 H Respiratory Rate 14 19 Blood Pressure 120/72 120/72 Pulse Oximetry 93 99 98 04/24/21 20:42 04/24/21 20:45 04/24/21 20:50 Temperature Pulse Rate 91 H 80 80 Respiratory Rate 23 19 21 Blood Pressure 114/70 99/56 L 106/64 Pulse Oximetry 99 94 99 04/24/21 20:55 04/24/21 21:00 04/24/21 21:10 Temperature Pulse Rate 81 80 Respiratory Rate 23 15 18 Blood Pressure 104/66 115/69 Pulse Oximetry 99 100 MDM - Fall Lab Data Labs: Point of Care Testing Test Results Not applicable Imaging Data Extremity x-ray #1: Radiologist's Impression: PROCEDURE:? XR ANKLE RT MIN 3V ? INDICATIONS:? POST REDUCTION ? TECHNIQUE:? 3 views of the ankle were acquired.? ? COMPARISON:? [facility], , XR ANKLE RT MIN 3V, 04/24/2021, 19:52. ? FINDINGS:? ? Bones:? Relocation of the ankle dislocation been performed.? There is improved alignment of the trimalleolar ankle fracture.? Mild residual lateral subluxation of the talus. ? Soft tissues:? No tibiotalar joint effusion.? Achilles tendon appears normal.? ? ? IMPRESSION:? Reduction of trimalleolar ankle fracture dislocation. ? ? ? Dictated by: Tommie Araya M.D. on 04/24/2021 at 21:10 ?? Extremity x-ray #2: Radiologist's Impression: PROCEDURE:? XR ANKLE RT MIN 3V ? INDICATIONS:? deformity fall ? TECHNIQUE:? 3 views of the ankle were acquired.? ? COMPARISON:? None. ? FINDINGS:? Examination limited by patient positioning factors and overlying material. ? Bones:? Lateral dislocation of the talus.? Moderately displaced distal fibular fracture.? Probable posterior malleolar fracture.? Lateral dislocation of a medial malleolar fracture. ? Soft tissues:? No tibiotalar joint effusion.? Achilles tendon appears normal.? ? ? IMPRESSION:? Trimalleolar ankle fracture dislocation. ? ? ? Dictated by: Tommie Araya M.D. on 04/24/2021 at 20:08 ? ? CT scan - head: Radiologist's Impression: PROCEDURE:? CT HEAD/BRAIN WO CON ? INDICATIONS:? fall hx of coil ? TECHNIQUE:? Noncontrast 4.5 mm thick angled axial sections acquired from the foramen magnum to the vertex, with coronal and sagittal reformats.? For radiation dose reduction, the following was used:? automated exposure control, adjustment of mA and/or kV according to patient size.? ? COMPARISON:? None. ? FINDINGS:? Image quality:? Excellent.? ? CSF spaces:? Basal cisterns are patent.? No extra-axial fluid collections.? The ventricles are symmetric in size and shape.? ? Brain:? No intracranial bleeds or masses.? There is cerebral volume loss for age, with resultant ventricular and sulcal prominence.? There are periventricular and deep white matter chronic small vessel ischemic changes.? There is intracranial internal carotid artery atherosclerosis.? ? Skull and face:? Calvarium and visualized facial bones appear intact, without suspicious lesions.? ? Sinuses:? Visualized sinuses and mastoids are clear.? ? IMPRESSION:? No acute intracranial abnormality. ? ? Dictated by: Tommie Araya M.D. on 04/24/2021 at 20:11? CT - cervical spine: Radiologist's Impression: PROCEDURE:? CT CERVICAL SPINE WO CON ? INDICATIONS:? fall ? TECHNIQUE:? Noncontrast 3 mm thick sections acquired from the skull base to the T4 level.? Sagittal and coronal reformats were then constructed.? For radiation dose reduction, the following was used:? automated exposure control, adjustment of mA and/or kV according to patient size.? ? COMPARISON:? None. ? FINDINGS:? Image quality:? Excellent.? ? Bones:? No fractures or dislocations.? Visualized superior ribs are intact.? ? Soft tissues:? Prevertebral soft tissues are normal in thickness.? No paravertebral hematomas.? No apical pneumothoraces.? ? ? IMPRESSION:? No fracture. ? ? ? Dictated by: Tommie Araya M.D. on 04/24/2021 at 20:11 ? ? [facility] Narrative Medical decision making narrative: Patient has extremely faint pulses but they are found. She had a successful fracture reduction. 2100 Dr. Mcgee orthopedics has been updated on patient's symptoms test results his reviewed x-rays himself. Recommend no weight-bearing crutches she will need surgery next week. Discharge Plan Departure Patient Disposition: Home Clinical Impression: Closed fracture dislocation of right ankle Qualifiers: Encounter type: initial encounter Qualified Code(s): S82.891A - Other fracture of right lower leg, initial encounter for closed fracture Instructions: DI for Ankle Fracture Activity Restrictions/Additional Instructions: *You have been diagnosed with right ankle fracture and dislocation *What to do: I am sorry that you broke your ankle. This will need surgery. Keep leg in a splint at all times. I recommend sponge bath or plastic bag for bathing. Do not weightbear. Use crutches. Elevate as often as possible. Ice 20-30 minutes at a time through splint *Continue to take medications as directed--> [facility]-2 tablets every 6 hours if needed for severe pain *Follow up with your primary care provider in 2-3 days *Return to ER if you should have increasing pain, numbness or tingling in toes, any new, worsening or concerning symptoms CONTROLLED SUBSTANCE DISCHARGE (Narcotoic/benzodiazepine/Flexeril/Phenergan) 1. You have been prescribed narcotic medications, it does have acetaminophen/Tylenol/paracetamol in it, DO NOT TAKE MORE THAN 4,00mg in 24 hours of Tylenol. TRAMADOL DOES NOT CONTAIN TYLENOL 2. Please understand that we cannot provide further refills of narcotics, benzodiazepines or controlled substances through the ED and her pain management will need to be through your provider. 3. While on these medications you cannot drive or operate heavy machinery. 4. You cannot sign legal documents or perform any duties such as this. 5. As long as you're taking opiate pain medications he should also be taking a stool softener such as Colace, Dulcolax, MiraLAX or prune juice, to help avoid constipation. Prescriptions: New hydrocodone-acetaminophen 5-325 mg tablet 1 tab PO Q6H PRN (Reason: pain) Qty: 15 RF: 0 No Action cephalexin 500 mg capsule 500 mg PO TID 7 Days Qty: 21 RF: 0 phenazopyridine [Pyridium] 200 mg tablet 200 mg PO TID 0 Days Qty: 6 RF: 0 duloxetine 60 mg capsule,delayed release(DR/EC) 60 mg PO DAILY MDD 60mg Qty: 90 RF: 3 benazepril 10 mg tablet 10 mg PO BID RF: 0 rosuvastatin 5 mg tablet 5 mg PO DAILY RF: 0 trazodone 50 mg tablet 100 - 150 mg PO DAILY PRNRF: 0 levothyroxine [Synthroid] 125 mcg tablet 125 mcg PO DAILY RF: 0 omega-3 fatty acids PO DAILY RF: 0 vitamin b PO DAILY RF: 0 mecobalamin (vitamin B12) PO RF: 0 lidocaine 5 % adhesive patch,medicated 1 patch TOP DAILY MDD 12 hours in a 24 hour period Qty: 30 RF: 5 Referrals: [facility] [Provider Group] Yinka Ardon MD [Primary Care Provider] - Parker Mcgee MD [Physician] -
[2021-04-24] MEDS: HYDROCODONE/ACET 5/325 PREPACK 1 BOTTLE MISC (22:20)
== END 2021-04-24 22:30 | disposition home or self-care (01) ==
PROVIDERS: Emergency Provider Emergency Medicine; PCP Internal Medicine
DX: S82.891A Other fracture of right lower leg, initial encounter for closed fracture (principal); W11.XXXA Fall on and from ladder, initial encounter; Z23 Encounter for immunization; Z86.79 Personal history of other diseases of the circulatory system
CPT/HCPCS: 27752; 29515; 70450; 72125; 73610; 90471; 99152; 99285; 90715; J2704

== ENCOUNTER → 2021-05-01 09:33 | Outpatient (CLI) | payer MEDICARE, OTHER, SELFPAY ==
[2021-05-01 11:28] LABS: COVID19 -Nasal RAPID Negative (Negative)
== END ==
PROVIDERS: PCP Internal Medicine; Visit Provider Nurse Practitioner
DX: Z20.822 Contact with and (suspected) exposure to COVID-19 (principal); Z01.812 Encounter for preprocedural laboratory examination
CPT/HCPCS: 87635; C9803

== ENCOUNTER 2021-05-04 06:16 | Day surgery (SDC) | payer MEDICARE, OTHER, SELFPAY ==
[2021-05-01 09:13] VITALS: BMI 22.6
[2021-05-04] VITALS (15 sets, daily range): BP systolic 111–148; BP diastolic 74–85; PULSE 71–82; RESP 12–20; TEMP 36.8–37.1; O2SAT 94–100; BMI 21.1
--- NOTE | 2021-05-04 07:20 | SUR.OPER ---
Supine on padded OR bed, head on pillow, arms secured on padded arm boards at <90 degrees abduction, legs uncrossed, safety belt at thigh, tape over blanket over lower legs.
--- NOTE | 2021-05-04 07:34 | PM.PREOP ---
Pre-operative Note COVID-19 COVID-19 status: Negative Result date/Date tested (Pos, Neg/Pending): 05/01/21 Interval Note History & Physical reviewed/Exam performed by Physician: Yes Changes to H&P: No
[2021-05-04] MEDS: CEFAZOLIN 1 GM VIAL IV (08:14)
--- NOTE | 2021-05-04 08:15 | SUR.PREOP ---
Block start time 0747, time out performed at this time. Monitoring initiated and maintained throughout procedure. Oxygen and medications given per anesthesiologist. Patient remained stable throughout procedure, no adverse reactions noted. Block end time 0802. Pt left for OR in stable condition.
--- NOTE | 2021-05-04 08:30 | PM.PROC.1 ---
Procedures Date/Time Date of procedure: 05/04/21 Time of procedure: 08:30 General Procedure description: Ultrasound guided popliteal sciatic and adductor canal nerve blocks for post op pain control after right ankle ORIF by Dr. Mcgee. Risk and benefits of procedure discussed with patient. ASA monitoring applied to patient. Oxygen given via nasal cannula. 2 mg Versed and 50 mcg fentanyl given for procedural sedation. Skin site was prepped with chlorhexidine and allowed to fully dry. Sterile gloves, mask, hat and probe cover were used to maintain sterility. 2% lidocaine and 30ga needle was used to make a small skin wheal at needle insertion site. Under ultrasound guidance, a 21ga 100mm Pajunk needle was directed near the division of the sciatic nerve into tibial and peroneal nerve in the popliteal fossa (lateral approach). Patient reported no parasthesias. After negative aspiration, 20 mL 0.5% ropivicaine and 5mg dexamethasone were injected around sciatic nerve. For adductor canal block, similar sterile fashion used. US used to locate femoral artery. Needle tip directed into adductor canal at level of mid thigh near femoral artery. After negative aspiration, 20mL 0.5% ropivacaine and 5mg dexamethasone were injected. Patient tolerated procedure well. Upper photo: adductor canal at mid thigh; Lower photo: sciatic nerve in popliteal fossa
--- NOTE | 2021-05-04 09:04 | SUR.OPER ---
BRUISING TO LEFT FLANK AREA ALSO NOTED.
--- NOTE | 2021-05-04 09:28 | P.OP_ITS ---
Operative Date/Time/Diagnoses Date of procedure: 05/04/21 Time of procedure: 09:28 Pre-op diagnosis: Right ankle fracture dislocation status post reduction of dislocation in the emergency room. Post-op diagnosis: same Procedure & Clinicians Procedure: Open reduction and internal fixation of medial and lateral malleolus of trimalleolar ankle fracture. Same procedure as scheduled: Yes Indications: The patient is a 75-year-old woman who fell from a height approximately 10 days ago sustaining a fracture dislocation of the right ankle. She was seen in the emergency room at [facility] and a reduction performed. She was splinted. She was seen in my office last week and a plan for definitive fixation was made. Risks benefits and alternatives to surgery were discussed with her. Risks discussed included but were not limited to: Failure to improve, posttraumatic arthritis, stiffness, infection, nerve damage, deep venous thrombosis, pulmonary embolism, myocardial infarction, permanent paralysis, aspiration pneumonia and . Surgeon: Parker Mcgee Click Yes if Unassisted: Yes Anesthesia Type: General and Peripheral nerve block Operative Notes Findings: Distal spiral fibular fracture with articular cartilage fragments entrapped in the fracture site. Transverse medial malleolar fracture. Closure Type: primary Specimen(s): none sent Prosthetic devices, grafts, tissues, transplants, or devices: Implants used in this procedure manufactured by the [employer] and included a 6 hole 1/3 tubular side plate with 6 screws through the plate and 1 lag screw 7 of the screws were cortical and 1 was a cancellous screw. There were two 40 mm partially threaded cancellous bone screws used medially. Applied: cast(s) and implant(s) Estimated Blood Loss (mL): 50 Blood products transfused: none Tourniquet time (min): 49 Procedure in detail: Patient was seen in the preoperative area where she confirmed her right ankle was the operative site and her great toe was marked with my initials distal to the splint. She received preoperative antibiotics and a peripheral nerve block. She was taken to the operating room and placed on the operating room table in a supine position. She underwent the induction of a general anesthetic. A tourniquet was placed about her proximal right thigh. A gel bump was placed under her right buttock. All pressure points were well padded. Her splint was removed. A time motion analyst-out was performed. The leg was prepared with ChloraPrep in the usual fashion draped through sterile drapes. The leg was elevated and exsanguinated with an Esmarch bandage and the tourniquet inflated to 250 mmHg. When usually approached the lateral malleolus with an approximately 10 cm straight incision overlying the fracture and going to the tip of the malleolus. The fracture was exposed with care being taken to avoid branches of the superficial peroneal nerve. The fracture was cleaned of hematoma and reduced using a lobster claw reduction clamp. A single lag screw was placed. This had relatively poor fixation due to osteoporosis. The clamp was left in position as a result. The side plate was then applied after bending it to fit the distal fibula appropriately. The distal most screw was a cancellous screw. A cortical screw was placed above this. This was below the joint line but I did not penetrate the medial cortex of the fibula. This was confirmed with fluoroscopy. The remaining holes were then filled with cortical screws. The reduction and position of all hardware was confirmed as being sati sfactory with fluoroscopy. The lateral wound was then irrigated and closed in the subcutaneous layer with 3-0 Vicryl. We turned our attention to the medial side. An approximately 6 cm curved incision was made over the distal fibula. Fracture was identified and cleaned of underlying material. The medial aspect of the talus was inspected and there was no major articular damage. The fracture was reduced with a pointed reduction clamp. Reduction position was verified on the fluoroscopy. Two parallel 40 mm partially threaded cancellous bone screws were then used to fixate the medial side. The position of all hardware and fractures was confirmed as being satisfactory on the fluoroscopic views on the mortise and lateral views. The medial wound was irrigated. The subcutaneous layer was also closed with 3-0 Vicryl. Skin on both wounds was then closed with carlota. Xeroform, sterile 4x4s and sterile cast padding was then applied followed by nonsterile cast padding and a stirrup type plaster splint. The tourniquet was deflated during dressing placement for total tourniquet time of 49 minutes. The patient was allowed to awaken from her anesthetic. She was extubated in the operating room was taken to the recovery room in good condition having tolerated the procedure well. Complications: none Post-operative Condition: stable Disposition: PACU Plan for aftercare: Patient will be discharged home today. She will follow up in my office in 2 weeks. She will be maintained in the current splint for 2 weeks and then in a short-leg cast. She will remain nonweightbearing for total of 4 weeks and then will be allowed to weight bear as tolerated in a removable walking ankle orthosis.
--- NOTE | 2021-05-04 10:20 | SUR.PHASEI ---
0971 Pt to recovery room A and O, can wiggle toes right foot, toes pink, bruises noted to toes and knee/leg.
[2021-05-04] MEDS: ACETAMINOPHEN 325 MG TABLET 975 MG PO (10:26)
[2021-05-04] MEDS: OXYCODONE IR 5 MG TABLET PO (10:26)
--- NOTE | 2021-05-04 11:05 | SUR.PHASEII ---
Pt rates pain 4/10, states too painful to go home. R leg elevated on 2 pillows, ice behind knee. Awaiting Dr. Angeles to be avilable.
--- NOTE | 2021-05-04 15:40 | SUR.PHASEII ---
Late entry: Pt's pain down to a tolerable level before Dr. Angeles available to see pt. Pt was ready to go, Taisha called available for ride home. OMA Noble assisted pt to dress and took pt to BR, steady when up, NWB. Left unit in steady condition.
== END 2021-05-04 12:40 | disposition home or self-care (01) ==
PROVIDERS: PCP Internal Medicine; Referring Provider Orthopaedic Surgery; Visit Provider Orthopaedic Surgery
PROC: 0SSF04Z Reposition Right Ankle Joint with Internal Fixation Device, Open Approach (ICD-10-PCS; CPT 27822; principal; 2021-05-04 07:45)
DX: S82.851A Displaced trimalleolar fracture of right lower leg, initial encounter for closed fracture (principal); M81.0 Age-related osteoporosis without current pathological fracture; I10 Essential (primary) hypertension; E07.9 Disorder of thyroid, unspecified; W11.XXXA Fall on and from ladder, initial encounter; Z98.1 Arthrodesis status; Z87.891 Personal history of nicotine dependence
CPT/HCPCS: 27822; 64450; J0690; J1100; J2250; J2405; J2704; J3010

== ENCOUNTER → 2021-06-09 12:16 | Outpatient (CLI) | payer MEDICARE, OTHER, SELFPAY | PROVIDERS: PCP Internal Medicine; Visit Provider Nurse Practitioner Family | DX: R30.9 Painful micturition, unspecified (principal) | CPT/HCPCS: 87077; 87086; 87186 ==

== ENCOUNTER → 2022-03-08 14:10 | Outpatient (CLI) | payer MEDICARE, OTHER, SELFPAY ==
--- NOTE | 2022-03-08 | DI.MG.S_ITS ---
BILATERAL DIGITAL SCREENING MAMMOGRAM 3D/2D WITH CAD: 03/08/2022 CLINICAL: Routine screening. Family history of breast cancer. Comparison is made to exams dated: 01/29/2020 mammogram, 07/25/2020 mammogram, 07/25/2017 mammogram, and 02/05/2015 mammogram - outside location. The tissue of both breasts is heterogeneously dense. This may lower the sensitivity of mammography. Current study was also evaluated with a Computer Aided Detection (CAD) system. No significant masses, calcifications, or other findings are seen in either breast. There has been no significant interval change. IMPRESSION: NEGATIVE There is no mammographic evidence of malignancy. A 1 year screening mammogram is recommended. Based on the Tyrer Cuzick model (a risk assessment model) the patient's lifetime risk is 4.7% and her 10 year risk is 0.0%. According to the ACR, ACS, and NCCN guidelines, an annual breast MRI exam along with mammogram is recommended if the patient's lifetime risk is 20% or greater. This exam was interpreted at Station ID: [id number]. NOTE: For mammograms, a report in lay terms will be sent to the patient. Approximately 15% of breast malignancies will not be visualized mammographically. In the management of a palpable breast mass, a negative mammogram must not discourage biopsy of a clinically suspicious lesion. Electronically Signed By: Denzel russell/harvey:03/08/2022 14:55:13 letter sent: Normal Exam ACR BI-RADS Category 1: Negative [id number]
== END ==
PROVIDERS: PCP Internal Medicine; Referring Provider Internal Medicine; Visit Provider Internal Medicine
DX: Z12.31 Encounter for screening mammogram for malignant neoplasm of breast (principal); Z80.3 Family history of malignant neoplasm of breast
CPT/HCPCS: 77063; 77067

== ENCOUNTER → 2022-07-20 13:40 | Outpatient (CLI) | payer MEDICARE, OTHER, SELFPAY ==
[2022-07-20 15:30] LABS: COVID19 -Nasal RAPID Negative (Negative)
== END ==
PROVIDERS: PCP Internal Medicine; Visit Provider Surgery
DX: Z20.822 Contact with and (suspected) exposure to COVID-19 (principal); Z01.812 Encounter for preprocedural laboratory examination
CPT/HCPCS: 87635; C9803

== ENCOUNTER 2022-07-21 12:27 | Day surgery (SDC) | payer MEDICARE, OTHER, SELFPAY ==
--- NOTE | 2022-07-21 | PATH_ITS ---
[facility] Accession Number: [id number] . 01 Material submitted: . PART A: colon - RANDOM COLON BIOPSIES PART B: colon - ASCENDING COLON POLYPS X2 PART C: colon - TRANSVERSE COLON POLYP PART D: colon - DESCENDING COLON POLYP . 01 Clinical history: . A: R/O MICROSCOPIC COLITIS . 01 Diagnosis: A. Random Colon Biopsies: Colonic mucosa with no significant diagnostic abnormality. Negative for active inflammation, granulomas, dysplasia, and malignancy. . B. Ascending Colon Polyps x2: Portions of tubular adenoma x2. . C. Transverse Colon Polyp: Tubular adenoma. . D. Descending Colon Polyp: Portion of hyperplastic polyp x1. Superficial portion of colorectal mucosa x1 with a benign lymphoid aggregate. [facility] 07/23/2022 1629 Local . 01 Electronically signed: . Nayely Lopez MD, Pathologist NPI- [id number] . 01 Gross description: . Part A: RANDOM COLON BIOPSIES: Received in formalin are 4 fragment(s) of talbot, soft tissue measuring 0.3 x 0.2 x 0.1 cm to 0.3 x 0.1 x 0.1 cm submitted entirely in 1 cassette(s) Part B: ASCENDING COLON POLYPS X2: Received in formalin are 2 fragment(s) of talbot, soft tissue measuring 0.4 x 0.1 x 0.1 cm to 0.2 x 0.1 x 0.1 cm submitted entirely in 1 cassette(s) Part C: TRANSVERSE COLON POLYP: Received in formalin is 1 fragment(s) of talbot, soft tissue measuring 0.4 x 0.2 x 0.2 cm submitted entirely in 1 cassette(s) Part D: DESCENDING COLON POLYP: Received in formalin are 2 fragment(s) of talbot, soft tissue measuring 0.7 x 0.1 x 0.1 cm to 0.3 x 0.1 x 0.1 cm submitted entirely in 1 cassette(s) /CPE 07/22/2022 0923 Local . 01 Pathologist provided ICD-10: Z86.010, K63.5, R19.7, Z80.0 . 01 CPT . 604552, 740768, 341510, 187228 Specimen Comment: A courtesy copy of this report has been sent to [phone] Performed at: 01 [facility] [address] [place] [address], [place], [place] [id number] MD Geo Salinas MD Phone: [phone]
[2022-07-21 12:55] VITALS: BP 125/79; PULSE 75; RESP 16; TEMP 37.1; O2SAT 100; BMI 21.7
[2022-07-21] MEDS: LACTATED RINGERS 1,000 ML 42 ML IV (13:14)
--- NOTE | 2022-07-21 13:45 | P.HP_ITS ---
History of Present Illness History of Present Illness Date Patient Seen: 07/21/22 Time Patient Seen: 13:45 Chief complaint: SDC Narrative: Patient is a very pleasant 76-year-old female who presented for colonoscopy. Her brother from colon cancer last year. She does have a personal history of a 1 cm hyperplastic polyp on previous exams. Her last colonoscopy was 12/22/2016. She has had intermittent diarrhea. Patient History Medical History Arthritis Cerebral aneurysm DVT (deep venous thrombosis) HLD (hyperlipidemia) HTN (hypertension) Spinal stenosis Thyroid disease UTI (urinary tract infection) Surgical History History of lumbosacral spine surgery Hx of fusion of cervical spine S/P endovascular aneurysm repair Family & Social History Family History Mother Alzheimer disease Father Cerebral hemorrhage Brother Colon cancer Bladder cancer Prostate CA Non-Hodgkin lymphoma Social History: household members none Tobacco & Substance use: Smoking Status Former smoker alcohol intake current alcohol intake frequency 0-2 drinks per day Substance Use Type does not use Meds Home Medications and Allergies Home Medications Medication Instructions Recorded Confirmed Type benazepril 10 mg tablet 10 mg PO BID 03/28/19 07/21/22 History levothyroxine 125 mcg tablet 137 mcg PO DAILY 03/28/19 07/21/22 History (Synthroid) mecobalamin (vitamin B12) 1 tab PO DAILY 03/28/19 06/09/21 History omega-3 fatty acids [[place] Oil] 1 tab PO DAILY 03/28/19 06/09/21 History rosuvastatin 5 mg tablet 5 mg PO DAILY 03/28/19 07/21/22 History trazodone 50 mg tablet 100 - 150 mg PO DAILY PRN As 03/28/19 07/21/22 History Directed vitamin b 1 tab PO DAILY 03/28/19 06/09/21 History lidocaine 5 % topical patch 1 patch topical DAILY low back 08/02/19 06/09/21 Rx pain #30 ea duloxetine 60 mg capsule,delayed 60 mg PO DAILY neuropathic pain 12/15/20 07/21/22 Rx release #90 caps aspirin 81 mg PO DAILY 07/21/22 07/21/22 History Allergies Allergy/AdvReac Type Severity Reaction Status Date / Time Sulfa (Sulfonamide Allergy Severe Nausea/headaches/hearing Verified 07/21/22 12:50 Antibiotics) loss iodine Allergy Unknown Anaphylaxis Verified 07/21/22 12:50 shellfish derived Allergy Unknown Anaphylaxis Verified 07/21/22 12:50 meperidine AdvReac Intermediate Hallucinati Verified 07/21/22 12:50 ng Hkhnjuf-WTB-DjX Reductase AdvReac Unknown Diarrhea Verified 07/21/22 12:50 Inhibitor [Pdxymwq-Yqg-Xeq Reductase Inhibitor] Review of Systems Review of Systems ROS: Yes All systems reviewed with the patient and are negative except as otherwise documented Exam Vital Signs (past 8 hours): - 07/21/22 12:55 Temperature 98.7 F Pulse Rate 75 Respiratory Rate 16 Blood Pressure 125/79 Pulse Oximetry 100 Oxygen Delivery Method Room Air Oxygen Delivery Method Room Air Const General: cooperative, healthy appearing, comfortable and No acute distress HENMT Head: normocephalic and atraumatic Resp Effort & Inspection: normal respiratory effort, able to speak in complete sentences and no audible wheezes Auscultation: clear to auscultation bilaterally Cardio Rate: regular rate Rhythm: regular rhythm GI Palpation: soft Assessment & Plan Assessment & Plan narrative: 1. Family history colon cancer 2. Personal history a advanced hyperplastic polyp 3. Intermittent diarrhea Colonoscopy today, further recommendations to follow Time Spent With Patient Critical Care time: I spent a total of [] minutes of critical care time on this patient's care today; this time is exclusive of procedural time.
[2022-07-21 14:26] VITALS: BP 138/82; PULSE 70; RESP 16; TEMP 36.3; O2SAT 98
--- NOTE | 2022-07-21 14:26 | PM.OP.COLON ---
Operative Date/Time/Diagnoses Date of procedure: 07/21/22 Time of procedure: 13:58 Procedure Notes Procedure in detail: Surgeon: Kayla Quinonez DO Procedure: Colonoscopy with polypectomy Preoperative diagnosis: 1. Personal history of hyperplastic polyps greater cm 2. Family history colon cancer-brother 3. Intermittent diarrhea Postoperative diagnosis: 1. Two 2 mm ascending colon polyps removed with Jumbo forceps 2. Transverse colon polyp 3 mm removed with Jumbo forceps 3. 6 mm descending colon polyp removed with cold snare 4. Normal-appearing mucosa throughout the entire colon random colon biopsies rule out microscopic colitis 5. Sigmoid diverticulosis 6. Mild internal hemorrhoids Medications: Monitored anesthesia care Preanesthesia Assessment An H and P was performed/updated and the Px?s ASA class is 2. The procedure was discussed in detail with the patient. The potential risks and complications including infection, bleeding, missed lesions, perforation, need for surgery in case of perforation, prolonged hospital stay, and were explained. A brief question and answer period was allotted and once all questions were answered, informed consent was obtained. The patient was brought back to the procedure room and placed on standard monitoring. The patient?s vital signs were monitored continuously throughout the entire procedure. Prior to starting, a timeout was performed to confirm the patient?s identity, allergies, medications, and procedure. Procedure in detail The patient was placed in left lateral decubitus position and once adequate sedation was obtained a FROTINO was performed. The digital rectal examination did not reveal any palpable lesions. The tip of the colonoscope was placed in the anal canal and advanced without difficulty all the way to the cecum with some difficulty due to a significantly tortuous colon with looping and redundancy. Scope passage was aided with manual pressure. Cecum was identified by the appendiceal orifice and the ileocecal valve. Unfortunately due to long position we were unable to intubate terminal ileum. Careful examination of all camara of the colon was performed with irrigation of any residual stool. Colon mucosa appeared unremarkable. Random colon biopsies were taken to rule out microscopic colitis. Two small ascending colon polyps measuring 2 mm were found removed with cold forceps. A 3 mm polyp was removed from the transverse colon with cold forceps. A 6 mm polyp was found in the descending colon removed with cold snare. Scattered sigmoid diverticula were noted. Grade 1 internal hemorrhoids were noted on retroflexion. The patient tolerated the procedure well and will be brought back to the recovery area to be discharged once criteria are met. The prep was judged to be good/excellent and adequate to identify polyps less than 6 mm. The withdrawal time was 10min. Complications There were no complications and estimated blood loss was minimal. Recommendations: Resume previous diet Continue outPx medications Follow up pathology results Repeat colonoscopy in Office follow up in An emergency contact number was given to the patient for any complications related to the procedure
[2022-07-21 14:31] VITALS: BP 139/80; PULSE 71; RESP 18; O2SAT 98
[2022-07-21 14:36] VITALS: BP 139/80; PULSE 71; RESP 16; O2SAT 100
[2022-07-21 14:41] VITALS: BP 137/72; PULSE 79; RESP 15; O2SAT 99
[2022-07-21 15:03] VITALS: BP 155/90; PULSE 74; RESP 16; TEMP 36.2; O2SAT 99
== END 2022-07-21 15:15 | disposition home or self-care (01) ==
PROVIDERS: PCP Internal Medicine; Referring Provider Student in an Organized Health Care Education/Training Program; Visit Provider Student in an Organized Health Care Education/Training Program
PROC: 0DJD8ZZ Inspection of Lower Intestinal Tract, Via Natural or Artificial Opening Endoscopic (ICD-10-PCS; CPT 45378; principal; 2022-07-21 13:30)
DX: R19.7 Diarrhea, unspecified (principal); Z80.0 Family history of malignant neoplasm of digestive organs; Z86.010 Personal history of colon polyps; K64.8 Other hemorrhoids; K57.30 Diverticulosis of large intestine without perforation or abscess without bleeding; D12.2 Benign neoplasm of ascending colon; D12.3 Benign neoplasm of transverse colon
CPT/HCPCS: 45385; 45380; J2704

== ENCOUNTER → 2022-08-13 15:11 | Outpatient (CLI) | payer MEDICARE, OTHER, SELFPAY ==
--- NOTE | 2022-08-13 15:15 | DI.MRI.S_ITS ---
PROCEDURE: MR LUMBAR SPINE WO CON INDICATIONS: SPINAL STENOSIS TECHNIQUE: Noncontrast sagittal T1 spin echo and T2 fast echo, sagittal STIR, and T2 fast spin echo through the lumbar spine. In cases with scoliosis, additional coronal T2 fast spin echo may be performed. COMPARISON: [facility], CR, XR LUMBAR SPINE WITH OBLIQUES PLUS FLEXION EXTENSION, 07/19/2022, 14:33. [facility], CT, L-SPINE WITHOUT CONTRAST, 11/10/2016, 10:53. FINDINGS: Image quality: Diagnostic Alignment and Curvature: There is normal bony alignment. Bone Marrow: Marrow is of normal overall signal. No acute vertebral body compression fractures. Spinal Cord: Conus medullaris terminates at the L1 level. Visualized cord demonstrates normal signal and size. Paraspinous Soft Tissues: No paravertebral masses. Postoperative changes are seen, with bilateral pedicle screws at L2, L3, and L4. Vertical fixation rods are seen. Disc spacers are seen at L2-L3 and L3-L4. There has been removal of portions of the posterior elements. Bone grafting material is noted. T12-L1: Normal appearance. L1-L2: Mac VIII disc moderate disc bulge is seen, which is eccentric to the left. There is a superimposed central disc protrusion. Mild to moderate facet hypertrophy is seen. There is moderate left-sided and mild right-sided neural foraminal narrowing. Moderate central canal narrowing is seen. These degenerative changes are worse than in 2017. L2-L3: Mild generalized disc bulge is seen. No significant neural foraminal narrowing can be seen. The central canal is widely patent. L3-L4: Mild generalized disc bulge is seen. No neural foraminal narrowing. The central canal is widely patent. L4-L5: At least moderate loss of disc height and disc signal can be seen. At least moderate disc bulge is seen, which is eccentric to the right. Mild to moderate facet hypertrophy is seen. There is moderate left-sided and moderate to severe right-sided neural foraminal narrowing. There is a degree of compression seen upon the exiting right L4 nerve root. Moderate central canal narrowing is seen. These degenerative changes are mildly progressed compared to 2017. L5-S1: The disc height and disk signal are well-preserved. At least moderate facet hypertrophy can be seen at this level. There is moderate right-sided and no significant left-sided neural foraminal narrowing. No significant central canal narrowing is seen. There is mild progression compared to 2017. Several perineural cysts can be seen involving the exit foramina, left worse than right. 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 IMPRESSION: Multiple levels of lumbar spine degenerative change are seen. The degenerative changes have progressed at L1-L2, L4-L5, and L5-S1 compared to prior 2017 CT examination. Postoperative changes are again seen L2 through L4. Dictated by: Rad Tucker M.D. on 08/13/2022 at 15:50 Approved by: Rad Tucker M.D. on 08/13/2022 at 16:02
== END ==
PROVIDERS: PCP Internal Medicine; Referring Provider Physical Medicine & Rehabilitation; Visit Provider Physical Medicine & Rehabilitation
DX: M48.062 Spinal stenosis, lumbar region with neurogenic claudication (principal); M47.817 Spondylosis without myelopathy or radiculopathy, lumbosacral region; M47.816 Spondylosis without myelopathy or radiculopathy, lumbar region; Z98.1 Arthrodesis status
CPT/HCPCS: 72148

== ENCOUNTER 2022-09-10 21:53 | Emergency (ER) | payer MEDICARE, OTHER, SELFPAY ==
[2022-09-10 21:57] VITALS: BP 178/90; PULSE 119; RESP 18; TEMP 36.2; O2SAT 98; BMI 21.2
[2022-09-10 22:34] VITALS: PULSE 102; RESP 18; O2SAT 98
[2022-09-10 23:00] VITALS: PULSE 96; RESP 15; O2SAT 96
[2022-09-10 23:18] VITALS: BP 189/101; PULSE 101; RESP 18; O2SAT 98
[2022-09-10 23:30] VITALS: BP 168/101; PULSE 97; RESP 30
--- NOTE | 2022-09-10 23:39 | ED_ITS ---
HPI - General Adult General Chief complaint: Hypertension Stated complaint: Concerns over high BP Time Seen by Provider: 09/10/22 23:04 Source: patient Mode of arrival: Ambulatory Limitations: no limitations History of Present Illness HPI narrative: Patient is a 77-year-old female. She does have a history of hypertension. She is on medications for this. She recently was taken off of hydrochlorothiazide by her primary doctor. She was told by primary doctor that she did not feel that she needed his medication. After she was taken off the medicine she did gain weight. This was inadvertent weight gain. The patient also stated that her blood pressure started to rise after being off the medicine. She has since put herself back on her hydrochlorothiazide. She also states that visit her thyroid medications were increased because her TSH was elevated. She takes her blood pressure at home. She has a history of a brain aneurysm with coiling. She takes her blood pressure on a regular basis because of this. She is noticed that despite being back on the hydrochlorothiazide her blood pressure has stayed somewhat elevated. She denies any chest pain or shortness of breath. No headache. She actually took 5 doses of her Benazepril today rather than 2 doses. She was concern because of her continued blood pressure elevations. Related Data Home Medications Medication Instructions Recorded Confirmed benazepril 10 mg tablet 10 mg PO BID 03/28/19 07/21/22 levothyroxine 125 mcg tablet 137 mcg PO DAILY 03/28/19 07/21/22 (Synthroid) mecobalamin (vitamin B12) 1 tab PO DAILY 03/28/19 06/09/21 omega-3 fatty acids [[place] Oil] 1 tab PO DAILY 03/28/19 06/09/21 rosuvastatin 5 mg tablet 5 mg PO DAILY 03/28/19 07/21/22 trazodone 50 mg tablet 100 - 150 mg PO DAILY PRN As 03/28/19 07/21/22 Directed vitamin b 1 tab PO DAILY 03/28/19 06/09/21 aspirin 81 mg PO DAILY 07/21/22 07/21/22 Previous Rx's Medication Instructions Recorded lidocaine 5 % topical patch 1 patch topical DAILY low back 08/02/19 pain #30 ea duloxetine 60 mg capsule,delayed 60 mg PO DAILY neuropathic pain 12/15/20 release #90 caps metoprolol tartrate 25 mg tablet 25 mg PO BID #60 tabs 09/11/22 Allergies Allergy/AdvReac Type Severity Reaction Status Date / Time Sulfa (Sulfonamide Allergy Severe Nausea/headaches/hearing Verified 09/10/22 21:57 Antibiotics) loss iodine Allergy Unknown Anaphylaxis Verified 09/10/22 21:57 shellfish derived Allergy Unknown Anaphylaxis Verified 09/10/22 21:57 meperidine AdvReac Intermediate Hallucinati Verified 09/10/22 21:57 ng Qnrqdkq-SAU-XoY Reductase AdvReac Unknown Diarrhea Verified 09/10/22 21:57 Inhibitor [Porllej-Vve-Hrv Reductase Inhibitor] Review of Systems Constitutional Constitutional: Reports system reviewed and no additional complaints, except as documented Cardiovascular Cardiovascular: Reports system reviewed and no additional complaints, except as documented Respiratory Respiratory: Reports system reviewed and no additional complaints, except as documented Gastrointestinal Gastrointestinal: Reports system reviewed and no additional complaints, except as documented Integumentary/Breasts Skin/Breast: Reports system reviewed and no additional complaints, except as documented Neurologic Neurologic: Reports system reviewed and no additional complaints, except as documented Hematologic/Lymphatic On Anticoagulants: No Patient History Medical History Arthritis Cerebral aneurysm DVT (deep venous thrombosis) HLD (hyperlipidemia) HTN (hypertension) Spinal stenosis Thyroid disease UTI (urinary tract infection) Surgical History History of lumbosacral spine surgery Hx of fusion of cervical spine S/P endovascular aneurysm repair Family History Mother Alzheimer disease Father Cerebral hemorrhage Brother Colon cancer Bladder cancer Prostate CA Non-Hodgkin lymphoma Social History household members: none Smoking Status: Former smoker alcohol intake: current Smoking Status: Former smoker alcohol intake frequency: 0-2 drinks per day Alcohol type: wine Substance Use Type: does not use Exam Initial Vital Signs Initial Vital Signs: Vital Signs Temperature 97.2 F L 09/10/22 21:57 Pulse Rate 119 H 09/10/22 21:57 Respiratory Rate 18 09/10/22 21:57 Blood Pressure 178/90 H 09/10/22 21:57 Pulse Oximetry 98 09/10/22 21:57 Oxygen Delivery Method 09/10/22 21:57 [facility] Head: normal to inspection and normocephalic Resp Effort & Inspection: normal respiratory effort Auscultation: clear to auscultation bilaterally Cardio Rate: tachycardic Rhythm: regular rhythm GI Inspection: normal to inspection Neuro General: patient alert, patient awake and moves all extremities Extrem General: normal to inspection and capillary refill normal Course Orders Ordered: ED Orders 09/10/22 23:04 EKG-12 Lead Stat Discontinued Medications Metoprolol Succinate (Metoprolol Er 25 Mg Tablet) 25 mg PO NOW ONE Stop: 09/10/22 23:41 Last Admin: 09/10/22 23:45 Dose: 25 mg Documented By: CYNTHIA Vital Signs Vital signs: Vital Signs - 8 hr 09/10/22 21:57 09/10/22 22:34 09/10/22 23:00 Temperature 97.2 F L Pulse Rate 119 H 102 H 96 H Respiratory Rate 18 18 15 Blood Pressure 178/90 H Pulse Oximetry 98 98 96 Oxygen Delivery Method Room Air 09/10/22 23:45 09/10/22 23:18 09/10/22 23:18 Temperature Pulse Rate 96 H 101 H Respiratory Rate 18 Blood Pressure 168/101 H 189/101 H Pulse Oximetry 98 Oxygen Delivery Method 09/10/22 23:30 09/10/22 23:30 09/11/22 00:00 Temperature Pulse Rate 97 H Respiratory Rate 30 H Blood Pressure 168/101 H 179/84 H Pulse Oximetry Oxygen Delivery Method 09/11/22 00:00 Temperature Pulse Rate 91 H Respiratory Rate 16 Blood Pressure Pulse Oximetry 97 Oxygen Delivery Method Medical Decision Making Differential Diagnosis Chronic Condition is having:: Moderate exacerbation Condition is at treatment goal?: No ECG Data Attestation: I personally reviewed and interpreted this ECG as follows: Interpretation: Sinus rhythm Ventricular rate of 100 Normal axis Normal QRS PVC Nonspecific ST T wave changes MDM Narrative Medical decision making narrative: Patient is asymptomatic from her hypertension. She is had some changes in her medications recently. She is unsure why her primary doctor took her off of her hydrochlorothiazide but she is since put herself back on it and she has lost weight and her blood pressure has improved but not back to ?normal? for her. She did take extra doses of her medications today. She was advised to take her medications as directed. Patient was tachycardic. She is been on metoprolol in the past and given her elevations in her blood pressures today in the fact that she takes her blood pressure on a regular basis I feel starting her back on metoprolol is not unreasonable. She was given a dose here in the ER. A prescription was sent to the pharmacy of her choice. She will continue the rest of her medications as directed. She was given strict return precautions. She expressed understanding and agreement. Discharge Plan Departure Patient Disposition: Home Clinical Impression: Hypertension Instructions: DI for High Blood Pressure Activity Restrictions/Additional Instructions: I recommend that you continue to take your hydrochlorothiazide and Benazepril as directed. We are going to add metoprolol to your medication regimen. This medication was sent to the pharmacy of your choice. Take your morning medicines tomorrow has normal. 2 hours later take your blood pressure. If your blood pressure greater than 140/90 take a dose of the metoprolol. Weight several more hours and take your blood pressure again. If it continues to be greater than 140/90 take another dose of the metoprolol. Two doses and 1 day of this medication is the maximum for now. It potentially can be increased later but that should be done under the guidance of your primary doctor. Take your evening medications like normal. Contact your primary doctor for a follow-up. Return to the emergency department for new or worsening symptoms. Prescriptions: New metoprolol tartrate 25 mg tablet 25 mg PO BID Qty: 60 0RF No Action duloxetine 60 mg capsule,delayed release(DR/EC) 60 mg PO DAILY MDD 60mg Qty: 90 3RF Rx Instructions: take 1 capsule every morning aspirin tablet 81 mg PO DAILY benazepril 10 mg tablet 10 mg PO BID rosuvastatin 5 mg tablet 5 mg PO DAILY trazodone 50 mg tablet 100 - 150 mg PO DAILY PRN (Reason: As Directed) levothyroxine [Synthroid] 125 mcg tablet 137 mcg PO DAILY omega-3 fatty acids 1 tab PO DAILY vitamin b 1 tab PO DAILY mecobalamin (vitamin B12) 1 tab PO DAILY lidocaine 5 % adhesive patch,medicated 1 patch TOP DAILY MDD 12 hours in a 24 hour period Qty: 30 5RF Rx Instructions: leave on most painful area for 12 hrs Referrals: Purvi Hernandez MD [Primary Care Provider] - Stand Alone Forms: Patient Portal/API
[2022-09-10 23:45] VITALS: BP 168/101; PULSE 96
[2022-09-10] MEDS: METOPROLOL ER 25 MG TABLET PO (23:45)
[2022-09-11] VITALS: BP 179/84; PULSE 91; RESP 16; O2SAT 97
== END 2022-09-11 00:14 | disposition home or self-care (01) ==
PROVIDERS: Emergency Provider Emergency Medicine; PCP Internal Medicine
DX: I10 Essential (primary) hypertension (principal)
CPT/HCPCS: 93005; 99283

== ENCOUNTER → 2024-02-02 11:29 | Outpatient (CLI) | payer MEDICARE, OTHER, SELFPAY | PROVIDERS: PCP Internal Medicine; Visit Provider Nurse Practitioner Family | DX: R30.0 Dysuria (principal); R35.0 Frequency of micturition | CPT/HCPCS: 87077; 87086; 87186 ==

== ENCOUNTER 2024-02-13 14:57 | Emergency (ER) | payer MEDICARE, OTHER, SELFPAY ==
[2024-02-13 14:59] VITALS: BP 167/88; PULSE 98; RESP 18; TEMP 36.6; O2SAT 100; BMI 21.4
--- NOTE | 2024-02-13 15:05 | DI.RAD.S_ITS ---
PROCEDURE: XR CHEST 1V INDICATIONS: chest pain TECHNIQUE: One view of the chest was acquired. COMPARISON: [facility], CR, XR CHEST 2V, 06/14/2019, 16:56. FINDINGS: Surgical changes and devices: None. Lungs and pleura: Lungs are clear. No pleural effusions or pneumothorax. Mediastinum: Mediastinal contours appear normal. Heart size is normal. Bones and chest wall: No suspicious bony lesions. Overlying soft tissues appear unremarkable. IMPRESSION: No acute pulmonary process. Dictated by: Gail Crooks M.D. on 02/13/2024 at 16:04 Approved by: Gail Crooks M.D. on 02/13/2024 at 16:04
--- NOTE | 2024-02-13 15:05 | EKG_ITS ---
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
[2024-02-13 15:31] LABS: Add Manual Diff / Slide Review NO; Basophils Absolute Auto 0 /uL (0-100); Basophils Percent Auto 0.6 % (0-2); Eosinophils Absolute Auto 100 /uL (0-450); Hemoglobin 12.2 g/dL (12.0-16.0); Lymphocytes Absolute Auto 1200 /uL (1100-4500); Lymphocytes Percent Auto 24.6 % (25-40); Mean Corpuscular Hemoglobin 34.6 PG (26-34); Mean Corpuscular Volume 101.7 fL (80-100); Monocytes Absolute Auto 700 /uL (0-900); Monocytes Percent Auto 14.4 % (3-14); Neutrophils Absolute Auto 3000 /uL (1500-7000); Neutrophils Percent Auto 59.4 % (50-75); Platelet Count 215 X10^3/uL (150-400); Red Blood Cell Count 3.53 X10^6/uL (4.0-5.2); Red Cell Distribution Width 11.8 % (11.6-14.8)
[2024-02-13 15:37] LABS: INR 0.9 (0.9-1.3); Prothrombin Time 10.3 SECONDS (9.4-12.5)
[2024-02-13 15:40] LABS: PTT Partial Thromboplastin Tim 30 SECONDS (25.1-36.5)
[2024-02-13 15:42] LABS: Alanine Aminotransferase 18 IU/L (<35); Albumin 4.2 g/dL (3.5-5.0); Albumin Globulin Ratio 1.2 (1.0-2.8); Alkaline Phosphatase 97 U/L (38-126); Aspartate Aminotransferase 30 IU/L (14-36); BUN Creatinine Ratio 32.1 (6-22); Bilirubin Total 0.4 mg/dL (0.2-1.3); Blood Urea Nitrogen 26 mg/dL (7-17); Calcium 9.4 mg/dL (8.4-10.2); Carbon Dioxide 24 mmol/L (22-32); Chloride 111 mmol/L (98-107); Creatine Kinase 86 U/L (30-135); Estimated Glomerular Filt Rate > 60 mL/min (>60); Globulin 3.6 g/dL (1.7-4.1); Glucose 161 mg/dL (80-110); HEMOLYSIS < 15 (0-50); Lipase 201 U/L (23-300); Magnesium 1.8 mg/dL (1.6-2.3); Potassium 3.8 mmol/L (3.4-5.1); Sodium 141 mmol/L (137-145); Total Protein 7.8 g/dL (6.3-8.2)
[2024-02-13 15:53] LABS: NT-proBNP (BNP-Adult 18+) 122 pg/mL (<450); Troponin I < 0.012 ng/mL (0.01-0.034)
[2024-02-13 16:47] VITALS: PULSE 79; RESP 15; O2SAT 99
[2024-02-13 17:00] VITALS: PULSE 81; RESP 18; O2SAT 98
[2024-02-13 17:30] VITALS: PULSE 79; RESP 18; O2SAT 99
[2024-02-13 18:03] VITALS: BP 195/109; PULSE 84; O2SAT 97
--- NOTE | 2024-02-13 18:25 | ED_ITS ---
HPI - Chest Pain General Chief Complaint: Chest Pain Stated Complaint: SOB, chest pain Time Seen by Provider: 02/13/24 16:31 Source: patient Mode of arrival: Ambulatory Limitations: no limitations History of Present Illness HPI narrative: Patient is a 78-year-old female history of hypertension hyperlipidemia cerebral aneurysm with coil presenting today with chest pain heaviness and radiation to her left arm. She says it has been off and on for the last 6 weeks. She has had upper respiratory infection she says that she had a really bad cold and since then she feels like she is some chest heaviness and shortness of breath with exertion. It also radiates to her left arm. She is followed by Dr. Combs while cardiology for an unknown reason. She has no known coronary artery disease. She says she was evaluated by his office 10 days ago she did not report these symptoms at that time in the provider noted a new heart murmur. She denies any fever or chills. Related Data Home Medications Medication Instructions Recorded Confirmed benazepril 10 mg tablet 10 mg PO BID 03/28/19 02/02/24 mecobalamin (vitamin B12) 1 tab PO DAILY 03/28/19 02/02/24 omega-3 fatty acids [[place] [employer]] 1 tab PO DAILY 03/28/19 02/02/24 trazodone 50 mg tablet 100 - 150 mg PO DAILY PRN As 03/28/19 02/02/24 Directed vitamin b 1 tab PO DAILY 03/28/19 02/02/24 aspirin 81 mg PO DAILY 07/21/22 02/02/24 levothyroxine 137 mcg tablet 137 mcg PO DAILY 02/02/24 02/02/24 rosuvastatin 10 mg tablet 10 mg PO ONCE PM 02/02/24 02/02/24 triamterene 37.5 1 cap PO DAILY 02/02/24 02/02/24 mg-hydrochlorothiazide 25 mg capsule Previous Rx's Medication Instructions Recorded lidocaine 5 % topical patch 1 patch topical DAILY low back 08/02/19 pain #30 ea duloxetine 60 mg capsule,delayed 60 mg PO DAILY neuropathic pain 12/15/20 release #90 caps metoprolol tartrate 25 mg tablet 25 mg PO BID #60 tabs 09/11/22 Allergies Allergy/AdvReac Type Severity Reaction Status Date / Time Sulfa (Sulfonamide Allergy Severe Nausea/headaches/hearing Verified 02/02/24 11:16 Antibiotics) loss iodine Allergy Unknown Anaphylaxis Verified 02/02/24 11:16 shellfish derived Allergy Unknown Anaphylaxis Verified 02/02/24 11:16 meperidine AdvReac Intermediate Hallucinati Verified 02/02/24 11:16 ng Wokmnci-OIY-DhO Reductase AdvReac Unknown Diarrhea Verified 02/02/24 11:16 Inhibitor [Adndslw-Csn-Bzo Reductase Inhibitor] Patient History Medical History Arthritis Cerebral aneurysm DVT (deep venous thrombosis) HLD (hyperlipidemia) HTN (hypertension) Spinal stenosis Thyroid disease UTI (urinary tract infection) Surgical History History of lumbosacral spine surgery Hx of fusion of cervical spine S/P endovascular aneurysm repair Family History Mother Alzheimer disease Father Cerebral hemorrhage Brother Colon cancer Bladder cancer Prostate CA Non-Hodgkin lymphoma Social History household members: none Smoking Status: Former smoker alcohol intake: current Smoking Status: Former smoker alcohol intake frequency: a few times a month Alcohol type: wine Substance Use Type: does not use Exam Initial Vital Signs Initial Vital Signs: Vital Signs Temperature 97.9 F 02/13/24 14:59 Pulse Rate 98 H 02/13/24 14:59 Respiratory Rate 18 02/13/24 14:59 Blood Pressure 167/88 H 02/13/24 14:59 Pulse Oximetry 100 02/13/24 14:59 Oxygen Delivery Method Room Air 02/13/24 14:59 GENERAL: Alert well-appearing 70-year-old female and in no acute distress. HEENT: Head atraumatic,EOMI, pupils reactive, face symmetric, moist mucous membranes CARDIOVASCULAR: Regular rate and rhythm without murmurs, rubs or gallops. RESPIRATORY: Breath sounds equal bilaterally, no wheezes rales or rhonchi. ABDOMEN: Soft, nontender. Normoactive bowel sounds all 4 quadrants. No guarding or rebound. : No CVA tenderness EXTREMITIES: Normal range of motion, no clubbing or edema. Neurovascularly intact NEUROLOGICAL: Alert and oriented x4.Normal gait and speech. SKIN: Warm, dry, no laceration, no petechiae, no rashes or lesions. Scores HEART Score Heart Score history: Moderately Suspicious Heart Score EKG: Normal Heart Score Age: > or = 65 years old Heart Score risk factors: 1-2 risk factors Heart Score troponin: < or = to normal limit Heart Score Total: 4 Course Orders Ordered: Discontinued Medications Aspirin (Aspirin 81 Mg Chew Tab) 324 mg PO NOW ONE Stop: 02/13/24 15:06 Vital Signs Vital signs: Vital Signs - 8 hr 02/13/24 14:59 02/13/24 16:47 02/13/24 17:00 Temperature 97.9 F Pulse Rate 98 H 79 81 Respiratory Rate 18 15 18 Blood Pressure 167/88 H Pulse Oximetry 100 99 98 Oxygen Delivery Method Room Air 02/13/24 17:30 02/13/24 18:03 02/13/24 18:03 Temperature Pulse Rate 79 84 Respiratory Rate 18 Blood Pressure 195/109 H Pulse Oximetry 99 97 Oxygen Delivery Method MDM - Chest Pain Lab Data 02/13/24 15:15 02/13/24 15:15 Labs: Lab Results 02/13/24 Range/Units 15:15 WBC 5.0 (4.5-11.0) X10^3/uL RBC 3.53 L (4.0-5.2) X10^6/uL Hgb 12.2 (12.0-16.0) g/dL Hct 36.0 (36-46) % MCV 101.7 H (80-100) fL MCH 34.6 H (26-34) PG MCHC 34.0 (30-36) % RDW 11.8 (11.6-14.8) % Plt Count 215 (150-400) X10^3/uL Neut % (Auto) 59.4 (50-75) % Lymph % (Auto) 24.6 L (25-40) % [place] % (Auto) 14.4 H (3-14) % Eos % (Auto) 1.0 L (2-4) % Baso % (Auto) 0.6 (0-2) % Neut # (Auto) 3000 (9342-6463) /uL Lymph # (Auto) 1200 (4637-6172) /uL [place] # (Auto) 700 (0-900) /uL Eos # (Auto) 100 (0-450) /uL Baso # (Auto) 0 (0-100) /uL PT 10.3 (9.4-12.5) SECONDS INR 0.9 (0.9-1.3) APTT 30 (25.1-36.5) SECONDS Sodium 141 (137-145) mmol/L Potassium 3.8 (3.4-5.1) mmol/L Chloride 111 H (98-107) mmol/L Carbon Dioxide 24 (22-32) mmol/L BUN 26 H (7-17) mg/dL Creatinine 0.81 (0.52-1.04) mg/dL Estimated GFR > 60 (>60) mL/min BUN/Creatinine Ratio 32.1 H (6-22) Glucose 161 H (80-110) mg/dL Calcium 9.4 (8.4-10.2) mg/dL Magnesium 1.8 (1.6-2.3) mg/dL Total Bilirubin 0.4 (0.2-1.3) mg/dL AST 30 (14-36) IU/L ALT 18 (<35) IU/L Alkaline Phosphatase 97 (38-126) U/L Total Creatine Kinase 86 (30-135) U/L Troponin I < 0.012 (0.01-0.034) ng/mL NT-Pro-B Natriuret Pep 122 (<450) pg/mL Total Protein 7.8 (6.3-8.2) g/dL Albumin 4.2 (3.5-5.0) g/dL Globulin 3.6 (1.7-4.1) g/dL Albumin/Globulin Ratio 1.2 (1.0-2.8) Lipase 201 (23-300) U/L Imaging Data Chest x-ray: Radiologist's Impression: PROCEDURE: XR CHEST 1V INDICATIONS: chest pain TECHNIQUE: One view of the chest was acquired. COMPARISON: [facility], , XR CHEST 2V, 06/14/2019, 16:56. FINDINGS: Surgical changes and devices: None. Lungs and pleura: Lungs are clear. No pleural effusions or pneumothorax. Mediastinum: Mediastinal contours appear normal. Heart size is normal. Bones and chest wall: No suspicious bony lesions. Overlying soft tissues appear unremarkable. IMPRESSION: No acute pulmonary process. Dictated by: Gail Crooks M.D. on 02/13/2024 at 16:04 ECG Data Attestation: I personally reviewed and interpreted this ECG as follows: Prior ECG tracings: available for review Interpretation: Normal sinus rhythm rate 93 SC interval 164 QRS [address] changes right bundle-branch block noted similar to EKGs MDM Narrative Medical decision making narrative: Patient is 78-year-old female history of hypertension hyperlipidemia, heart score of 4 presenting today with some concerning symptoms. On exam I do not appreciate a murmur though she has an outpatient echocardiogram scheduled for a new murmur that cardiology provider heard. The happened ongoing for couple weeks it does not seem like it is any worse today. She is noted to be extremely hypertensive here in the emergency department. She reports she does not normally have high blood pressure it is normally controlled. Blood work has been reviewed she has no leukocytosis anemia no HANS a negative troponin, normal bilirubin and liver enzymes Chest x-ray has been reviewed EKG has been reviewed no ischemic changes stable right bundle-branch block 1840 patient is upset that she has been waiting since 3:00 p.m. she has multiple pets at home she needs to take care. My have explained to her that a repeat troponin with the indicated possibly as stay in observation for echocardiogram and stress test. At this time she does not want to stay for repeat troponin she does not want to stay overnight in the hospital she has not prepared to do so she lives alone there is no one to take care of her pets for her. She understands that if she goes home she could potentially have a heart attack and . Nurse Linton and Dede present for conversation. The patient is clinically sober, free from distracting injury, appears to have intact insight, judgment and reason. Does not meet criteria for involuntary hospitalization. Patient has the capacity to make decisions. The patient is also not under any duress to leave the hospital. In this scenario, it would be battery to subject the patient to treatment against his/her will. I have voiced my concerns for the patient's health given that a full evaluation and treatment had not occurred. I have discussed the need for continued evaluation to determine if there symptoms are caused by a condition that present risk of or morbidity. Risk including but not limited to , permanent disability, prolonged hospitalization, prolonged illness, were discussed. I tried offering alternative options in hopes that the patient might be amenable to partial evaluation and treatment which would be medically beneficial to the patient, though the patient declined my options and insisted on leaving. Because I have been unable to convince the patient to stay I answered all of their questions about the condition and ask them to return to the ED as soon as possible to complete their evaluation, especially if their symptoms worsen or do not improve. I emphasized that leaving against medical advice did not preclude returning here for further evaluation. I asked the patient to return if they change their mind about the further evaluation and treatment. I strongly encouraged the patient to return to this emergency department or any emergency department at any time, particularly with worsening symptoms. Discharge Plan Departure Patient Disposition: Left Against Medical Advice Clinical Impression: Chest pain Instructions: DI for Acute Coronary Syndrome, DI for Chest Pain Activity Restrictions/Additional Instructions: It was strongly recommended that you stay for a repeat troponin possible admission for stress test and echocardiogram. Your choosing to leave against medical advice You may return to the emergency department at any time. I do strongly recommend that you talk to your machine molder and primary care provider about stress test and echocardiogram. There is possibility of heart attack and potential for with leaving this evening Prescriptions: No Action levothyroxine 137 mcg tablet 137 mcg PO DAILY rosuvastatin 10 mg tablet 10 mg PO ONCE PM triamterene-hydrochlorothiazid 37.5-25 mg capsule 1 cap PO DAILY duloxetine 60 mg capsule,delayed release(DR/EC) 60 mg PO DAILY MDD 60mg Qty: 90 3RF Rx Instructions: take 1 capsule every morning aspirin tablet 81 mg PO DAILY metoprolol tartrate 25 mg tablet 25 mg PO BID Qty: 60 0RF benazepril 10 mg tablet 10 mg PO BID trazodone 50 mg tablet 100 - 150 mg PO DAILY PRN (Reason: As Directed) omega-3 fatty acids 1 tab PO DAILY vitamin b 1 tab PO DAILY mecobalamin (vitamin B12) 1 tab PO DAILY lidocaine 5 % adhesive patch,medicated 1 patch TOP DAILY MDD 12 hours in a 24 hour period Qty: 30 5RF Rx Instructions: leave on most painful area for 12 hrs Referrals: Michelle Rondon MD [Primary Care Provider] - Stand Alone Forms: Patient Portal/API, Against Medical Advice
[2024-02-13 18:30] VITALS: BP 206/109; PULSE 94; O2SAT 99
== END 2024-02-13 18:48 | disposition left against medical advice (07) ==
PROVIDERS: Emergency Medicine; Emergency Provider Emergency Medicine; PCP Internal Medicine
DX: R07.9 Chest pain, unspecified (principal); I45.10 Unspecified right bundle-branch block
CPT/HCPCS: 36415; 71045; 80053; 82550; 83690; 83735; 83880; 84484; 85025; 85610; 85730; 93005; 99283; 99284

== ENCOUNTER → 2024-05-29 15:01 | Outpatient (CLI) | payer MEDICARE, OTHER, SELFPAY ==
--- NOTE | 2024-05-29 15:03 | DI.MG.S_ITS ---
BILATERAL DIGITAL SCREENING MAMMOGRAM 3D/2D WITH CAD: 05/29/2024 CLINICAL: Routine screening. Family history of breast cancer. Comparison is made to exams dated: 03/08/2022 mammogram - [facility], 01/29/2020 mammogram, and 07/25/2017 mammogram - outside location. The breasts are heterogeneously dense, which may obscure small masses (category c / 51-75% glandular tissue). Current study was also evaluated with a Computer Aided Detection (CAD) system. No significant masses, calcifications, or other findings are seen in either breast. There has been no significant interval change. IMPRESSION: NEGATIVE There is no mammographic evidence of malignancy. A 1 year screening mammogram is recommended. Based on the Tyrer Cuzick model (a risk assessment model) the patient's lifetime risk is 3.7% and her 10 year risk is 0.0%. According to the ACR, ACS, and NCCN guidelines, an annual breast MRI exam along with mammogram is recommended if the patient's lifetime risk is 20% or greater. This exam was interpreted at Station ID: [id number]. NOTE: For mammograms, a report in lay terms will be sent to the patient. Approximately 15% of breast malignancies will not be visualized mammographically. In the management of a palpable breast mass, a negative mammogram must not discourage biopsy of a clinically suspicious lesion. Electronically Signed By: Kevin loera/harvey:05/30/2024 07:20:45 letter sent: Normal Exam ACR BI-RADS Category 1: Negative
== END ==
LOC: MAMMO 15:01
PROVIDERS: PCP Internal Medicine; Referring Provider Internal Medicine; Visit Provider Internal Medicine
DX: Z12.31 Encounter for screening mammogram for malignant neoplasm of breast (principal); Z80.3 Family history of malignant neoplasm of breast; R92.333 Mammographic heterogeneous density, bilateral breasts
CPT/HCPCS: 77063; 77067

== ENCOUNTER → 2025-02-06 18:57 | Outpatient (CLI) | payer MEDICARE, OTHER, SELFPAY ==
--- NOTE | 2025-02-06 19:00 | DI.MRI.S_ITS ---
PROCEDURE: MR CERVICAL SPINE WO CON INDICATIONS: pain in neck and shoulders TECHNIQUE: Noncontrast sagittal T1 spin echo and T2 fast spin echo, sagittal STIR, foraminal oblique sagittal T2 fast spin echo, and axial gradient echo or T2 fast spin echo through the cervical spine. COMPARISON: None. FINDINGS: Image quality: Excellent. Alignment and Curvature: There is loss of cervical lordosis. No spondylolisthesis. Bone Marrow: There is fusion of the C6-T1 vertebral bodies. No suspicious focal lesion seen. Spinal Cord: Visualized spinal cord has normal size and signal. No cerebellar tonsillar herniation. Paraspinous Soft Tissues: No paravertebral masses. Prevertebral soft tissues are normal in thickness. C2-C3: Normal appearance. C3-C4: There is posterior osteophyte and left uncinate process arthropathy, with mild left foraminal narrowing. C4-C5: There is posterior osteophyte/disc bulge complex, with mild right foraminal narrowing. C5-C6: There is posterior osteophyte/disc bulge complex as well as left uncinate process arthropathy. There is significant left foraminal narrowing as well as some left lateral recess stenosis, without significant central spinal stenosis C6-C7: No significant spinal stenosis C7-T1: No significant spinal stenosis IMPRESSION: 1. There is fusion of the C6-T1 vertebral bodies. There is adjacent level degenerative disease with significant left lateral spinal stenosis at C5-C6, no significant central spinal stenosis. 2. No acute osseous lesions seen. Dictated by: Rigoberto Hui M.D. on 02/07/2025 at 21:18 Approved by: Rigoberto Hui M.D. on 02/07/2025 at 21:24
== END ==
LOC: MRI 18:58
PROVIDERS: PCP Internal Medicine; Referring Provider Physician Assistant Surgical; Visit Provider Physician Assistant Surgical
DX: S16.1XXA Strain of muscle, fascia and tendon at neck level, initial encounter (principal); M50.321 Other cervical disc degeneration at C4-C5 level; M47.812 Spondylosis without myelopathy or radiculopathy, cervical region; M48.02 Spinal stenosis, cervical region; M41.9 Scoliosis, unspecified; Z98.1 Arthrodesis status
CPT/HCPCS: 72141